=== PATIENT | female | born 1940 | race Caucasian/White ===

== ENCOUNTER → 2020-05-30 14:40 | Outpatient (BNVA) | payer MEDICARE, MEDICAID, SELFPAY | PROVIDERS: Family Provider Family Medicine; PCP Physician Assistant Medical; Visit Provider Internal Medicine | DX: M05.9 Rheumatoid arthritis with rheumatoid factor, unspecified (principal); R76.8 Other specified abnormal immunological findings in serum; Z79.52 Long term (current) use of systemic steroids; Z11.1 Encounter for screening for respiratory tuberculosis; Z11.59 Encounter for screening for other viral diseases; E11.9 Type 2 diabetes mellitus without complications; Z79.84 Long term (current) use of oral hypoglycemic drugs; J44.9 Chronic obstructive pulmonary disease, unspecified; Z87.891 Personal history of nicotine dependence | CPT/HCPCS: 99204 ==

== ENCOUNTER 2020-05-30 15:42 | Outpatient (CLI) | payer MEDICARE, MEDICAID, SELFPAY ==
--- NOTE | 2020-05-30 15:54 | XRR_ITS ---
PROCEDURE INFORMATION: Exam: XR Right Shoulder Exam date and time: 05/30/2020 3:54 PM Age: 80 years old Clinical indication: Right; Patient HX: C/O pain bilat shoulders and low back , swelling and stiffness. Presents for evaluation for inflammatory arthritis; Additional info: R76.8 - other specified abnormal immunological findings in serum TECHNIQUE: Imaging protocol: XR Right shoulder. Views: 2 or more views. COMPARISON: No relevant prior studies available. FINDINGS: Bones/joints: There are old right rib fracture deformities. There is severe degenerative changes in the lower cervical spine. No evidence of inflammatory arthritis. No chondrocalcinosis. There is no acute fracture or dislocation. The acromioclavicular joint alignment is appropriate. The subacromial joint space is well-preserved. The glenohumeral joint is unremarkable. No calcific tendinopathy. The visualized ribs are intact. Lungs: The visualized lung apex is clear. Soft tissues: Normal. XR/XR shoulder RT min 2V* [id number] IMPRESSION: No acute bony abnormality.
--- NOTE | 2020-05-30 15:54 | XRR_ITS ---
PROCEDURE INFORMATION: Exam: XR Lumbosacral Spine, 2 or 3 Views Exam date and time: 05/30/2020 3:54 PM Age: 80 years old Clinical indication: Prior surgery; Surgery date: 6+ months; Patient HX: C/O low back pain. Presents for evaluation for inflammatory arthritis; Additional info: R76.8 - other specified abnormal immunological findings in serum TECHNIQUE: Imaging protocol: XR of the lumbosacral spine, 2 or 3 views. COMPARISON: CR Lumbar Spine 1v PORT [id number] 08/25/2014 10:10 AM FINDINGS: Bones/joints: There is straightening of the normal lordosis that may indicate spasm. There is marked disc space narrowing with endplate osteophytes and sclerosis at L5-S1 which has progressed compared to the prior exam. Diffuse moderate osteoarthritic changes in the remainder of the lumbar spine are noted. No acute fracture. No spondylolysis or spondylolisthesis. Soft tissues: Unremarkable. XR/XR lumbar spine 2-3V* [id number] IMPRESSION: Progressive spondylosis. No acute bony abnormality.
--- NOTE | 2020-05-30 15:54 | XRR_ITS ---
PROCEDURE INFORMATION: Exam: XR Right Hand Exam date and time: 05/30/2020 3:54 PM Age: 80 years old Clinical indication: Hand; Right; Patient HX: C/O pain bilat shoulders and low back. Swelling and stiffness. Presents for evaluation of inflammatory arthritis; Additional info: R76.8 - other specified abnormal immunological findings in serum TECHNIQUE: Imaging protocol: XR Right hand. Views: 1 or 2 views. COMPARISON: No relevant prior studies available. FINDINGS: Bones/joints: There are diffuse osteoarthritic changes in the hand and wrist. Joint space narrowing, sclerosis and marginal osteophytes are specially severe involving the 1st interphalangeal joint, 2nd DIP joint, 1st carpometacarpal joint and scaphoid trapezium trapezoid joint. 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 There is marked joint space narrowing in the radiocarpal joint with proximal migration of the scaphoid and sclerosis and scalloping of the distal radius. There is also widening of the distance between the scaphoid and lunate measuring 4.5 mm with mild proximal migration of the capitate compatible with SLAC wrist deformity. No active inflammatory erosions are identified. No acute bony abnormality. Soft tissues: Normal. Other findings: No ankylosis. XR/XR hand RT 2V [id number] IMPRESSION: 1. Severe osteoarthritic changes. No acute bony abnormality. No evidence of active inflammatory arthritis. 2. 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
--- NOTE | 2020-05-30 15:54 | XRR_ITS ---
PROCEDURE INFORMATION: Exam: XR Left Shoulder Exam date and time: 05/30/2020 3:54 PM Age: 80 years old Clinical indication: Left; Patient HX: C/O pain bilat shoulders and low back. Swelling and stiffness. Presents for evaluation for inflammatory arthritis; Additional info: R76.8 - other specified abnormal immunological findings in serum TECHNIQUE: Imaging protocol: XR Left shoulder. Views: 2 or more views. COMPARISON: CR XR shoulder RT min 2V* [id number] 05/30/2020 4:08 PM FINDINGS: Bones/joints: No evidence of inflammatory arthritis or chondrocalcinosis. There are severe degenerative changes in the lower cervical spine. There is no acute fracture or dislocation. The acromioclavicular joint alignment is appropriate. The subacromial joint space is well-preserved. The glenohumeral joint is unremarkable. No calcific tendinopathy. The visualized ribs are intact. Lungs: There is a 10 mm ground-glass nodule left lung lateral to the hilum. Soft tissues: Normal. XR/XR shoulder LT min 2V* [id number] IMPRESSION: 1. There is a 10 mm ground-glass nodule left lung lateral to the hilum. Follow-up chest CT is recommended for further evaluation. 2. No acute bony abnormality.
--- NOTE | 2020-05-30 15:54 | XRR_ITS ---
PROCEDURE INFORMATION: Exam: XR Cervical Spine, 2 or 3 Views Exam date and time: 05/30/2020 3:54 PM Age: 80 years old Clinical indication: Neck pain; Patient HX: C/O pain neck, shoulders, elbows, . has previous diagnosis of rheumatoid arthritis. ; Additional info: R76.8 - other specified abnormal immunological findings in serum TECHNIQUE: Imaging protocol: XR of the cervical spine, 2 or 3 views. COMPARISON: No relevant prior studies available. FINDINGS: Bones/joints: There is no instability with flexion or extension. There is disc space narrowing with endplate osteophytes and osteoarthritic changes throughout the cervical spine greatest at C5-C6 and C6-C7. No acute fracture. No ankylosis or inflammatory type erosions of the facet joints are identified. Soft tissues: Calcification in the soft tissues posterior to the spinous processes of C4 and C5 is compatible with old ligamentous injury. Dental: The patient is edentulous. XR/XR cervical spine fl/ex [id number] IMPRESSION: Moderate to severe osteoarthritic changes. No instability. No acute abnormality.
--- NOTE | 2020-05-30 15:54 | XRR_ITS ---
PROCEDURE INFORMATION: Exam: XR Left Hand Exam date and time: 05/30/2020 3:54 PM Age: 80 years old Clinical indication: Hand; Left; Patient HX: C/O pain bilat shoulders and low back. Swelling and stiffness. Presents for evaluation for inflammatory arthritis; Additional info: R76.8 - other specified abnormal immunological findings in serum TECHNIQUE: Imaging protocol: XR Left hand. Views: 3 or more views. COMPARISON: No relevant prior studies available. FINDINGS: Bones/joints: There are diffuse osteoarthritic changes in the hand and wrist. There is joint space narrowing with sclerosis and marginal osteophytes greatest involving the 2nd, 3rd and 5th DIP joints and the 1st carpometacarpal joint and scaphoid trapezium trapezoid joint. No inflammatory erosions or ankylosis is identified. No acute fracture or dislocation. There is trace chondrocalcinosis in the wrist compatible with CPPD. Soft tissues: Normal. XR/XR hand LT 2V [id number] IMPRESSION: Diffuse osteoarthritic changes. No acute bony abnormality. There is chondrocalcinosis in the wrist.
[2020-05-30 17:53] LABS: Hepatitis B Core AB, Total Non-Reactive (Nonreactive); Hepatitis B Surface Antigen Non-Reactive (Nonreactive); Hepatitis C Virus Antibody Non-Reactive (Nonreactive)
[2020-06-01 13:23] LABS: Quantiferon Mitogen 8.24 IU/mL; Quantiferon Nil 0.14 IU/mL; Quantiferon Plus TB1 0.36 IU/mL; Quantiferon Plus TB2 0.65 IU/mL; Quantiferon TB Gold POSITIVE (NEGATIVE)
[2020-06-03 02:42] LABS: Glucose-6-Phosphate Dehydrogen 16.9 U/g Hgb (7.0-20.5)
== END 2020-05-30 15:43 | disposition home or self-care (01) ==
LOC: LAB 15:49
PROVIDERS: PCP Physician Assistant Medical; Visit Provider Internal Medicine
DX: Z51.81 Encounter for therapeutic drug level monitoring (principal); R76.8 Other specified abnormal immunological findings in serum; D86.9 Sarcoidosis, unspecified; M32.9 Systemic lupus erythematosus, unspecified; R91.1 Solitary pulmonary nodule; M47.816 Spondylosis without myelopathy or radiculopathy, lumbar region; M11.231 Other chondrocalcinosis, right wrist
CPT/HCPCS: 36415; 72040; 72100; 73030; 73120; 82955; 86480; 86704; 86803; 87340

== ENCOUNTER 2020-08-25 13:04 | Outpatient (CLI) | payer MEDICARE, MEDICAID, SELFPAY ==
--- NOTE | 2020-08-25 13:16 | CT_ITS ---
WS: [id number] LDCT LUNG CANCER SCREENING TECHNIQUE: Noncontrast CT of the chest with coronal and sagittal reformatted images. CLINICAL INFORMATION: NICOTINE DEPENDENCE COMPARISON: CT chest 3 30,015 DLP: 60.13 mGy.cm DIvol: 1.[address] scans at [facility] use at least one of these dose optimization techniques: automat ed exposure control; mA and/or kV adjustment per patient size (includes targeted exams where dose is matched to clinical indication); or iterative reconstruction. FINDINGS: Left lower lobe pulmonary opacity with adjacent vessel. This measures approximately 11 x 9 mm and is similar in appearance to 2015. This measures a few millimeters larger today with a more solid appeara nce but otherwise not significantly changed. Spiculated fibrotic appearing opacity right lower lobe h as decreased in size since 2015. This measures approximately 10 mm. Fibrosis right lower lobe mediall y. Calcified granuloma right upper lobe. Vascular calcification. Coronary calcification. Tiny pericardial effusion or pericardial thickening. Numerous anterior mediastinal and peribronchial lymph nodes nonspecific but likely reactive. These ar e unchanged since 2015. No axillary lymphadenopathy. Densely calcified bilateral breast nodules measuring 9 mm on the right and 10 mm on the left. Recomme nd diagnostic mammography and ultrasound for further evaluation. Cholecystectomy clips. CT/CT lung screening [id number] IMPRESSION: LUNG-RADS: 3-Probably Benign FOLLOW UP: 6 Month LDCT IN ADDITION, DENSELY CALCIFIED BREAST LESIONS BILATERALLY MAY REPRESENT INVOLUT ING FIBROADENOMAS BUT INDETERMINANT. RECOMMEND FURTHER EVALUATION WITH BILATERA L DIAGNOSTIC MAMMOGRAPHY AND ULTRASOUND.
== END 2020-08-25 13:05 | disposition home or self-care (01) ==
LOC: CT 13:10
PROVIDERS: PCP Physician Assistant Medical; Visit Provider Internal Medicine Pulmonary Disease
DX: Z12.2 Encounter for screening for malignant neoplasm of respiratory organs (principal); F17.210 Nicotine dependence, cigarettes, uncomplicated
CPT/HCPCS: 71271

== ENCOUNTER → 2020-11-15 15:00 | Outpatient (BNVA) | payer MEDICARE, MEDICAID, SELFPAY | PROVIDERS: PCP Physician Assistant Medical; Visit Provider Internal Medicine | DX: R76.8 Other specified abnormal immunological findings in serum (principal); M25.50 Pain in unspecified joint; R76.12 Nonspecific reaction to cell mediated immunity measurement of gamma interferon antigen response without active tuberculosis; M54.9 Dorsalgia, unspecified; R91.1 Solitary pulmonary nodule; J44.9 Chronic obstructive pulmonary disease, unspecified; F17.210 Nicotine dependence, cigarettes, uncomplicated | CPT/HCPCS: 99213; 99214 ==

== ENCOUNTER → 2021-01-30 09:06 | Outpatient (BNVA) | payer MEDICARE, MEDICAID, SELFPAY | PROVIDERS: PCP Physician Assistant Medical; Visit Provider Neurological Surgery | DX: R76.8 Other specified abnormal immunological findings in serum (principal); M25.50 Pain in unspecified joint; Z79.899 Other long term (current) drug therapy | CPT/HCPCS: 80053; 85025; 85651; 86140 ==

== ENCOUNTER → 2021-03-06 13:48 | Outpatient (BNVA) | payer MEDICARE, MEDICAID, SELFPAY | PROVIDERS: PCP Physician Assistant Medical; Visit Provider Internal Medicine | DX: J44.9 Chronic obstructive pulmonary disease, unspecified (principal); R91.1 Solitary pulmonary nodule; R76.12 Nonspecific reaction to cell mediated immunity measurement of gamma interferon antigen response without active tuberculosis; M25.50 Pain in unspecified joint; R76.8 Other specified abnormal immunological findings in serum; R74.01 Elevation of levels of liver transaminase levels; F17.210 Nicotine dependence, cigarettes, uncomplicated | CPT/HCPCS: 99214 ==

== ENCOUNTER 2021-04-26 09:09 | Outpatient (CLI) | payer MEDICARE, MEDICAID, SELFPAY ==
--- NOTE | 2021-04-26 09:30 | US_ITS ---
WS: [id number] RIGHT UPPER QUADRANT ULTRASOUND HISTORY: R74.01 - Elevation of levels of liver transaminase levels COMPARISON: None available. Liver: 12.6 cm in length. Normal size liver. No bile duct dilatation or mass. Gallbladder: Prior cholecystectomy. CBD: 0.3 cm Pancreas: Normal size and echogenicity. Right kidney: 8.9 cm in length. Mild atrophy with no hydronephrosis. Cortical cyst inferior kidney me asuring 1.0 x 1.1 x 1.3 cm. No hydronephrosis. Aorta and IVC: Unremarkable abdominal aorta and IVC. No ascites. US/US liver [id number] IMPRESSION: 1. Prior cholecystectomy. 2. No biliary duct dilatation. 3. Simple cyst RIGHT kidney.
== END 2021-04-26 09:10 | disposition home or self-care (01) ==
PROVIDERS: PCP Physician Assistant Medical; Visit Provider Internal Medicine
DX: R74.01 Elevation of levels of liver transaminase levels (principal)
CPT/HCPCS: 76705

== ENCOUNTER → 2021-05-07 13:00 | Outpatient (BNVA) | payer MEDICARE, MEDICAID, SELFPAY | PROVIDERS: PCP Physician Assistant Medical; Visit Provider Internal Medicine | DX: J44.9 Chronic obstructive pulmonary disease, unspecified (principal); R91.1 Solitary pulmonary nodule; M25.50 Pain in unspecified joint; R76.12 Nonspecific reaction to cell mediated immunity measurement of gamma interferon antigen response without active tuberculosis; R74.01 Elevation of levels of liver transaminase levels; M54.9 Dorsalgia, unspecified; R76.8 Other specified abnormal immunological findings in serum; F17.210 Nicotine dependence, cigarettes, uncomplicated | CPT/HCPCS: 99213; 99214 ==

== ENCOUNTER → 2021-05-31 13:09 | Outpatient (BNVA) | payer MEDICARE, MEDICAID, SELFPAY | PROVIDERS: PCP Physician Assistant Medical; Referring Provider Internal Medicine; Visit Provider Anesthesiology Pain Medicine | DX: G89.29 Other chronic pain (principal); M51.9 Unspecified thoracic, thoracolumbar and lumbosacral intervertebral disc disorder; M47.812 Spondylosis without myelopathy or radiculopathy, cervical region; M79.604 Pain in right leg; M79.605 Pain in left leg; Z98.890 Other specified postprocedural states; F17.200 Nicotine dependence, unspecified, uncomplicated; Z79.891 Long term (current) use of opiate analgesic; M53.2X2 Spinal instabilities, cervical region | CPT/HCPCS: 72050; 99205 ==

== ENCOUNTER 2021-05-31 14:12 | Outpatient (CLI) | payer MEDICARE, MEDICAID, SELFPAY ==
--- NOTE | 2021-05-31 14:26 | XR_ITS ---
WS: [id number] CERVICAL SPINE 5 VIEWS HISTORY: M47.812 - Spondylosis without myelopathy or radiculopathy... COMPARISON: 05/30/2020. AP and lateral views of the cervical spine. Lateral in neutral, flexion and extension. Straightening of the normal cervical lordosis. Severe disc space narrowing and osteophytosis at C5-6 and C6-7. Very mild flexion extension instability at C4. Approximately 2 mm movement during flexion a nd extension of the C4 vertebral body. No additional movement. No fractures. Very mild narrowing of the facet joints. Facet joint arthritis is most significant at C5-6 and C6-7. No soft tissue abnormality. Lateral masses of C1 and C2 are aligned. The odontoid is intact. XR/XR cervical spine 4-5V [id number] IMPRESSION: 1. Severe disc space narrowing and spondylosis at C5-6 and C6-7. 2. Very minimal flexion extension instability at C4.
== END 2021-05-31 14:13 | disposition home or self-care (01) ==
PROVIDERS: PCP Physician Assistant Medical; Visit Provider Anesthesiology Pain Medicine
DX: M47.812 Spondylosis without myelopathy or radiculopathy, cervical region (principal); M53.2X2 Spinal instabilities, cervical region
CPT/HCPCS: 72050

== ENCOUNTER → 2021-06-06 14:09 | Outpatient (BNVA) | payer MEDICARE, MEDICAID, SELFPAY | PROVIDERS: PCP Physician Assistant Medical; Visit Provider Anesthesiology Pain Medicine | DX: M47.816 Spondylosis without myelopathy or radiculopathy, lumbar region (principal); Z79.891 Long term (current) use of opiate analgesic | CPT/HCPCS: 64493; 64494; 64495; J3490 ==

== ENCOUNTER → 2021-07-18 08:38 | Outpatient (BNVA) | payer MEDICARE, MEDICAID, SELFPAY | PROVIDERS: PCP Physician Assistant Medical; Visit Provider Anesthesiology Pain Medicine | DX: G89.29 Other chronic pain (principal); M54.2 Cervicalgia; M51.9 Unspecified thoracic, thoracolumbar and lumbosacral intervertebral disc disorder; M79.604 Pain in right leg; M79.605 Pain in left leg; Z98.890 Other specified postprocedural states; Z79.891 Long term (current) use of opiate analgesic | CPT/HCPCS: 99214 ==

== ENCOUNTER → 2021-07-25 14:23 | Outpatient (BNVA) | payer MEDICARE, MEDICAID, SELFPAY | PROVIDERS: PCP Physician Assistant Medical; Visit Provider Anesthesiology Pain Medicine | DX: M47.816 Spondylosis without myelopathy or radiculopathy, lumbar region (principal) | CPT/HCPCS: 64493; 64494; 64495; J3490 ==

== ENCOUNTER → 2021-08-16 13:54 | Outpatient (BNVA) | payer MEDICARE, MEDICAID, SELFPAY | PROVIDERS: PCP Physician Assistant Medical; Visit Provider Anesthesiology Pain Medicine | DX: G89.29 Other chronic pain (principal); M54.2 Cervicalgia; M51.9 Unspecified thoracic, thoracolumbar and lumbosacral intervertebral disc disorder; Z98.890 Other specified postprocedural states; M79.604 Pain in right leg; M79.605 Pain in left leg; F17.210 Nicotine dependence, cigarettes, uncomplicated; Z79.891 Long term (current) use of opiate analgesic | CPT/HCPCS: 99214 ==

== ENCOUNTER → 2021-09-20 12:31 | Outpatient (BNVA) | payer MEDICARE, MEDICAID, SELFPAY | PROVIDERS: PCP Physician Assistant Medical; Visit Provider Internal Medicine | DX: J44.9 Chronic obstructive pulmonary disease, unspecified (principal); R91.1 Solitary pulmonary nodule; R76.12 Nonspecific reaction to cell mediated immunity measurement of gamma interferon antigen response without active tuberculosis; R76.8 Other specified abnormal immunological findings in serum; M54.9 Dorsalgia, unspecified; F17.210 Nicotine dependence, cigarettes, uncomplicated | CPT/HCPCS: 99214 ==

== ENCOUNTER → 2021-10-01 09:16 | Outpatient (BNVA) | payer MEDICARE, MEDICAID, SELFPAY | PROVIDERS: PCP Physician Assistant Medical; Visit Provider Internal Medicine | DX: G89.29 Other chronic pain (principal); M51.9 Unspecified thoracic, thoracolumbar and lumbosacral intervertebral disc disorder; M54.2 Cervicalgia; R74.01 Elevation of levels of liver transaminase levels; R76.8 Other specified abnormal immunological findings in serum | CPT/HCPCS: 80053; 85025; 85651; 86140 ==

== ENCOUNTER 2022-01-08 14:32 | Outpatient (CLI) | payer MEDICARE, MEDICAID, SELFPAY ==
--- NOTE | 2022-01-08 14:42 | XR_ITS ---
WS: [id number] Lumbar spine, 3 views, 01/08/2022 Clinical Data: M51.9 - Unspecified thoracic, thoracolumbar and lumbosacr... Comparison: Lumbar spine, 05/30/2020. Findings: No compression fractures or subluxation is seen. Degenerative disc narrowing at L5-S1 is present. The there is anterior osteoarthritic spurring from L1 through L5. Transverse processes and SI joints are normal. There is calcification wall of the abdominal aorta but no aneurysm. There is an arthroplasty. There a re clips in the upper abdomen probably from a cholecystectomy. XR/XR lumbar spine 2-3V* [id number] Impression: 1. Degenerative disc narrowing L5-S1. 2. Osteoarthritis of the lumbar vertebral bodies.
--- NOTE | 2022-01-08 14:42 | XR_ITS ---
WS: [email or web address] Thoracic spine, 3 views, 01/08/2022 Clinical Data: M51.9 - Unspecified thoracic, thoracolumbar and lumbosacral... Comparison: None. Findings: No compression fractures are seen. The disc heights are normal. There is anterior osteoarthritic change of all the thoracic vertebral bodies. The paravertebral regio n is normal. There are clips in the right upper quadrant from a cholecystectomy. XR/XR thoracic spine 3V* [id number] Impression: Mild osteoarthritis of the thoracic vertebral bodies.
== END 2022-01-08 14:33 | disposition home or self-care (01) ==
LOC: RAD 14:34
PROVIDERS: PCP Physician Assistant Medical; Visit Provider Internal Medicine
DX: M25.50 Pain in unspecified joint (principal); R76.8 Other specified abnormal immunological findings in serum; R76.12 Nonspecific reaction to cell mediated immunity measurement of gamma interferon antigen response without active tuberculosis; M51.9 Unspecified thoracic, thoracolumbar and lumbosacral intervertebral disc disorder; R74.01 Elevation of levels of liver transaminase levels
CPT/HCPCS: 72072; 72100; 99214

== ENCOUNTER → 2022-05-06 14:14 | Outpatient (BNVA) | payer MEDICARE, MEDICAID, SELFPAY | PROVIDERS: PCP Physician Assistant Medical; Visit Provider Internal Medicine | DX: M25.50 Pain in unspecified joint (principal); J44.9 Chronic obstructive pulmonary disease, unspecified; R76.8 Other specified abnormal immunological findings in serum; R76.12 Nonspecific reaction to cell mediated immunity measurement of gamma interferon antigen response without active tuberculosis | CPT/HCPCS: 99213; 99214 ==

== ENCOUNTER → 2022-09-19 16:38 | Outpatient (BNVA) | payer MEDICARE, MEDICAID, SELFPAY | PROVIDERS: PCP Physician Assistant Medical; Visit Provider Family Medicine | DX: I10 Essential (primary) hypertension (principal); E03.9 Hypothyroidism, unspecified; E11.9 Type 2 diabetes mellitus without complications; R74.01 Elevation of levels of liver transaminase levels | CPT/HCPCS: 80053; 80061; 83036; 84443; 85025 ==

== ENCOUNTER 2022-10-08 22:38 | Inpatient (IN) | payer MEDICARE, MEDICAID, SELFPAY ==
[2022-10-08 22:43] VITALS: BMI 20.5
[2022-10-08 22:47] VITALS: BP 148/57; PULSE 63; RESP 18; TEMP 36.5; O2SAT 92
--- NOTE | 2022-10-08 22:48 | ED_ITS ---
HPI - Fall General: Chief Complaint: Fall Stated Complaint: right hip pain Time Seen by Provider: 10/08/22 22:48 History of Present Illness: Ms. Muro is an 82-year-old lady with history of hypertension, hyperlipidemia, COPD, diabetes presenting to the emergency department for fall with hip pain. She reports propping more lightheaded over the past day and was walking to let her cat and when she fell primarily backwards and on the right side and immediately had right hip pain. Unable to ambulate. Moderate to severe in intensity initially however quite improved with EMS administered analgesia. No other specific changes in health, exacerbating, or alleviating factors identi fied. Onset (ago): minute(s) Fall from: standing Loss of consciousness: None Prolonged down time: no Symptoms prior to fall: lightheadedness Location of injury: pelvis Location of injury - extremities: Right: thigh Severity: moderate Quality: stabbing and aching Review of Systems General: Reports: 10 or more systems reviewed and unremarkable except in HPI and below PFSH ED PFSH: Medical History Cervical disc disease Lumbar disc disease Surgical History History of appendectomy History of cholecystectomy History of hemilaminectomy History of hysterectomy Family History Mother Cancer Other CAD (coronary artery disease) Diabetes Social History Smoking and tobacco status: never smoked Quit status (tobacco): considering quitting Second hand smoke exposure: Yes Smoking risk assessment/counseling performed?: Yes Alcohol intake: never Substance/Drug Use: never Caregiver/support person: Yes Lives independently: Yes Household members: none Housing: Apartment Marital status: / Current occupational status: retired Pets and animals: No Current gender identity: Female Physical Exam Const: COMMON NORMALS: alert GENERAL APPEARANCE: cooperative and well developed HENMT: COMMON NORMALS: normocephalic and atraumatic HEAD & SCALP: normocephalic and atraumatic Eye: COMMON NORMALS: conjunctivae normal CONJUNCTIVA: Yes conjunctivae normal SCLERA: sclerae normal Neck/C-Spine: COMMON NORMALS: supple GENERAL: Yes trachea midline Resp: COMMON NORMALS: clear to auscultation bilaterally EFFORT & INSPECTION: Yes able to speak in complete sentences AUSCULTATION: clear to auscultation bilaterally Cardio: COMMON NORMALS: regular rate and regular rhythm RATE: regular rate RHYTHM: regular rhythm GI: COMMON NORMALS: Soft to palpation PALPATION: Yes Soft to palpation and No Tenderness to palpation present (GI) Extremity: NARRATIVE EXTREMITY EXAM: Right hip tenderness palpation. Distal CMS intact. GENERAL: Yes normal exam except as noted and No edema Neuro: COMMON NORMALS: moves all extremities SENSORIUM/ORIENTATION: Yes alert and No Orientation impaired Psych: COMMON NORMALS: mental status grossly normal and Normal thought process present THOUGHT PROCESS: Normal thought process present Course Vital Signs: Vital signs: Vital Signs Temperature 97.8 F 10/14/22 12:09 Pulse Rate 78 10/14/22 12:09 Respiratory Rate 18 10/14/22 12:09 Blood Pressure 154/78 10/14/22 12:09 Pulse Oximetry 98 10/14/22 12:09 Oxygen Delivery Me thod Room Air 10/14/22 08:00 MDM - Fall Medical Decision Making 82-year-old lady presenting due to fall. She does endorse some lightheadedness though believes that this was due to trip overall. Additional exam performed. EKG demonstrates sinus rhythm with nonspecific ST segment abnormalities, normal axis and intervals, no STEMI. Labs with no significant hematologic abnormality or metabolic end of hyperkalemia and elevated creatinine. Initial troponin elevated with negative range 2-hour delta troponin. No UTI. CT imaging negative for acute traumatic injury with the exception of right subcapital fracture. Numerous incidental findings were discussed with patient. Patient treated with Tdap, aspirin, IV fluids, analgesia during ED course. Orthopedic service consulted. The results of ED evaluation were discussed with the patient including plan for admission due to requirement for level of care not available if discharged to prevent significant worsening/deterioration. Patient agreeable with plan. Discussed with hospitalist service who was agreeable to admit patient. Medical Records I reviewed the patient's medical records. Lab Data I reviewed the patient's lab results. 10/13/22 02:58 10/13/22 02:58 Radiology Impressions Chest/Abdomen/Pelvis CT 10/08/22 22:53 IMPRESSION: 1. Negative for traumatic injury to the chest. 2. Ascending thoracic aorta is dilated 3.6 cm, similar to prior exam. 3. Coronary artery atherosclerotic calcifications. 4. Cardiomegaly. 5. Mediastinal lymph nodes measuring up to 7.7 mm. 6. Right lower lobe 13.7 mm pulmonary nodule. Left lower lobe 11.7 mm nodule, new compared to prior exam. Lingular nodule measuring 15 mm abutting the pleural surface. Highly suspicious nodule(s). Consider non-emergent IMPRESSION: 1. Right subcapital impacted fracture with at least 1/2 shaft displacement. 2. Biliary dilation. 3. Cholecystectomy. 4. Bilateral renal cysts. 5. Left kidney chronic atrophy. 6. Constipation. 7. Calles catheter in the urinary bladder with air presumed iatrogenic. 8. Diverticulosis without diverticulitis. 9. Left hip arthroplasty changes. COMMENTS: Consistent with the [employer]'s Incidental Findings Committee white paper (J Am Ivan Radiol 2018): Any incidental renal lesion less than 1 cm or classified as too small to characterize, or any incidental cystic renal lesion characterized as simple-appearing, is likely benign. No follow-up imaging is recommended for these lesions per consensus recommendations based on imaging criteria. Face CT 10/08/22 22:53 IMPRESSION: Negative for fracture or dislocation. Femur X-Ray 10/08/22 22:53 IMPRESSION: 1. Right subcapital impacted displaced hip fracture. 2. Scattered vascular calcifications Head CT 10/08/22 22:53 IMPRESSION: Negative for intracranial hemorrhage or mass effect. Hip/Pelvis X-Ray 10/08/22 22:53 IMPRESSION: Right subcapital impacted displaced hip fracture. Tibia/Fibula X-Ray 10/08/22 22:53 IMPRESSION: No acute findings. Pelvis X-Ray 10/10/22 08:42 IMPRESSION: Postsurgical changes of right hip arthroplasty Laboratory Results WBC 7.1 10^3/uL (4.0-10.0) 10/08/22 22:55 RBC 3.72 10^6/uL (4.1-5.3) L 10/08/22 22:55 Hgb 12.0 g/dL (11.5-15.3) 10/08/22 22:55 Hct 36.6 % (37.0-47.0) L 10/08/22 22:55 MCV 98.4 fl (81-99) 10/08/22 22:55 MCH 32.3 pg (28.0-34.0) 10/08/22 22:55 MCHC 32.8 g/dL (30.0-36.0) 10/08/22 22:55 RDW 13.6 % (12.1-15.1) 10/08/22 22:55 Plt Count 214 10^3/cmm (130-400) 10/08/22 22:55 MPV 9.9 fL (7.4-10.4) 10/08/22 22:55 Neut % (Auto) 61.2 % 10/08/22 22:55 Lymph % (Auto) 27.1 % 10/08/22 22:55 [place] % (Auto) 10.3 % 10/08/22 22:55 Eos % (Auto) 0.0 % 10/08/22 22: Baso % (Auto) 0.8 % 10/08/22 22: Neut # (Auto) 4.32 10^3/uL (1.8-7.7) 10/08/22 22:55 Lymph # (Auto) 1.9 10^3/uL (0.8-4.8) 10/08/22 22:55 [place] # (Auto) 0.7 10^3/uL (0.2-0.9) 10/08/22 22:55 Eos # (Auto) 0.0 10^3/uL (0.0-0.8) 10/08/22 22:55 Baso # (Auto) 0.1 10^3/uL (0.0-0.1) 10/08/22 22: Nucleated RBC % (auto) 0 % 10/08/22 22: Nucleated RBCs # 0.0 /100WBC 10/08/22 22:55 PT 13.30 SECONDS (12.1-14.9) 10/08/22 22:55 INR 0.98 (0.8-1.2) 10/08/22 22:55 APTT 27.8 SECONDS (23.9-36.7) 10/08/22 22:55 Sodium 135 mmol/L (136-145) L 10/08/22 22:55 Potassium 5.6 mmol/L (3.5-5.1) H 10/08/22 22:55 Chloride 99 mmol/L (98-107) 10/08/22 22:55 Carbon Dioxide 26 mmol/L (22-29) 10/08/22 22:55 Anion Gap 15.6 (5-19) 10/08/22 22:55 BUN 27 mg/dL (8-23) H 10/08/22 22:55 Creatinine 1.9 mg/dL (0.5-0.9) H 10/08/22 22:55 GFR Calculation Not Reportable 10/08/22 22:55 Glucose 82 mg/dL (65-115) 10/08/22 22:55 POC Glucose 222 mg/dL (70-110) H 10/08/22 23:18 Estimat Average Glucose 171 10/08/22 22:55 Hemoglobin A1c 7.6 % (4.0-6.0) H 10/08/22 22:55 Calculated Osmolality 284 mOsm/kg (285-295) L 10/08/22 22:55 Calcium 8.5 mg/dL (8.5-10.5) 10/08/22 22:55 Total Bilirubin 0.3 mg/dL (0.15-1.2) 10/08/22 22:55 AST 69 U/L (0-32) H 10/08/22 22:55 ALT 54 U/L (0-33) H 10/08/22 22:55 Alkaline Phosphatase 63 U/L (35-105) 10/08/22 22:55 Creatine Kinase 345 U/L (26-192) H* 10/09/22 00:50 Troponin T Baseline 180 ng/L (0-10) H* 10/08/22 22:55 Troponin T 120 Minute 150.8 ng/L (0-10) H 10/09/22 00:50 Delta Troponin T -29.2 ABS# (0-10) L 10/09/22 00:50 Total Protein 5.5 g/dL (6.6-8.7) L 10/08/22 22:55 Albumin 3.4 g/dL (3.5-5.2) L 10/08/22 22:55 Globulin 2.1 g/dL (1.3-4.6) 10/08/22 22:55 Procalcitonin 0.07 ng/mL (0-0.5) 10/09/22 00:50 TSH 1.08 uIU/mL (0.27-4.20) 10/09/22 00:50 TSH Cancelled 10/09/22 00:50 Urine Color Light yellow (Yellow) 10/08/22 23:41 Urine Appearance Clear (CLEAR) 10/08/22 23:41 Urine pH 5 (5-7) 10/08/22 23:41 Ur Specific Boaz 1.010 (1.005-1.030) 10/08/22 23:41 Urine Protein Neg (Negative) 10/08/22 23:41 Urine Glucose (UA) Norm (Normal) 10/08/22 23:41 Urine Ketones Negative (Negative) 10/08/22 23:41 Urine Blood Neg (Negative) 10/08/22 23:41 Urine Nitrate Negative (Negative) 10/08/22 23:41 Urine Bilirubin Neg (Negative) 10/08/22 23:41 Urine Urobilinogen Neg mg/dL (Negative) 10/08/22 23:41 Ur Leukocyte Esterase Negative (Negative) 10/08/22 23:41 Discharge Plan Discharge Patient Disposition: Admitted As Inpatient Admit Provider: Jessica Abarca Clinical Impression: BRENDA (acute kidney injury), Elevated troponin, Multiple lung nodules Closed subcapital fracture of neck of right femur Qualifiers: Encounter type: initial encounter Qualified Code(s): S72.011A - Unspecified intracapsular fracture of right femur, initial encounter for closed fracture Condition: Stable Discharge Diet: As Directed and Diabetic Discharge Activity: Increase activity as tolerated, Limit activity as instru cted, Use walker/crutches as instructed and As per PT/OT instructions Coding Level of Care Code ED [employer] for Marion Cavanaugh
--- NOTE | 2022-10-08 22:53 | CTR_ITS ---
PROCEDURE INFORMATION: Exam: CT Maxillofacial Without Contrast Exam date and time: 10/08/2022 11:48 PM Age: 82 years old Clinical indication: Injury or trauma; Fall; Blunt trauma (contusions or hematomas); Nose; Patient HX: PT tripped on a rug and fell backwards onto floor at home. Contusion to nasion. ; Additional info: Fall, L nasal bridge echymosis TECHNIQUE: Imaging protocol: Computed tomography of the face without contrast. Radiation optimization: All CT scans at this facility use at least one of these dose optimization techniques: automated exposure control; mA and/or kV adjustment per patient size (includes targeted exams where dose is matched to clinical indication); or iterative reconstruction. REPORTING DATA: Count of CT and Cardiac NM exams in prior 12 months: This patient has received 2 known CTs and 0 known cardiac nuclear medicine studies in the 12 months prior to the current study. COMPARISON: CT head wo con* [id number] 10/08/2022 11:45 PM RADIATION DOSE METRICS: Total DLP (mGy-cm): 514.98 FINDINGS: Orbital cavities: Orbits are normal. Globes are unremarkable. Bones/joints: No acute fracture. Paranasal sinuses: Normal. No air-fluid levels. Soft tissues: Unremarkable. Nasal cavity: Chronic rightward deviation of the bony nasal septum by 5.[address]/CT facial bones wo con* [id number] IMPRESSION: Negative for fracture or dislocation.
--- NOTE | 2022-10-08 22:53 | XRR_ITS ---
PROCEDURE INFORMATION: Exam: XR Right Hip Exam date and time: 10/08/2022 11:04 PM Age: 82 years old Clinical indication: Injury or trauma; Fall; Fracture of pelvis & hip; Right; Traumatic fracture; Articular head of femur; Closed fracture; Additional info: Fall, R hip pain TECHNIQUE: Imaging protocol: Radiologic exam of the right hip. Views: 1 view hip with pelvis when performed. COMPARISON: CR XR lumbar spine 2-3V* [id number] 05/30/2020 4:21 PM FINDINGS: Bones/joints: Right subcapital impacted displaced hip fracture. Soft tissues: Unremarkable. XR/XR hip RT 2-3V wo/w pel* [id number] IMPRESSION: Right subcapital impacted displaced hip fracture.
--- NOTE | 2022-10-08 22:53 | XRR_ITS ---
PROCEDURE INFORMATION: Exam: XR Right Tibia and Fibula Exam date and time: 10/08/2022 11:14 PM Age: 82 years old Clinical indication: Injury or trauma; Fall; Sprain or strain; Lower leg; Right; Additional info: Fall, mid to distal pain TECHNIQUE: Imaging protocol: Radiologic exam of the right tibia and fibula. Views: 2 views. COMPARISON: No relevant prior studies available. FINDINGS: Bones/joints: Normal. Soft tissues: Normal. XR/XR tibia fibula RT 2V [id number] IMPRESSION: No acute findings.
--- NOTE | 2022-10-08 22:53 | CTR_ITS ---
PROCEDURE INFORMATION: Exam: CT Head Without Contrast Exam date and time: 10/08/2022 11:45 PM Age: 82 years old Clinical indication: Injury or trauma; Fall; Blunt trauma (contusions or hematomas); Patient HX: PT tripped on a rug and fell backwards onto floor at home. Negative for anticoagulants. TECHNIQUE: Imaging protocol: Computed tomography of the head without contrast. Radiation optimization: All CT scans at this facility use at least one of these dose optimization techniques: automated exposure control; mA and/or kV adjustment per patient size (includes targeted exams where dose is matched to clinical indication); or iterative reconstruction. REPORTING DATA: Count of CT and Cardiac NM exams in prior 12 months: This patient has received 2 known CTs and 0 known cardiac nuclear medicine studies in the 12 months prior to the current study. COMPARISON: CR XR cervical spine 4-5V [id number] 05/31/2021 2:38 PM RADIATION DOSE METRICS: Total DLP (mGy-cm): 866 FINDINGS: Brain: Moderate diffuse white matter disease likely reflecting chronic microvascular ischemic changes. Punctate bilateral basal ganglia calcifications appear chronic and benign. Cerebral ventricles: No ventriculomegaly. Paranasal sinuses: Visualized sinuses are unremarkable. No fluid levels. Mastoid air cells: Visualized mastoid air cells are well aerated. Bones/joints: Unremarkable. No acute fracture. Soft tissues: Unremarkable. CT/CT head wo con* [id number] IMPRESSION: Negative for intracranial hemorrhage or mass effect.
--- NOTE | 2022-10-08 22:53 | CTR_ITS ---
PROCEDURE INFORMATION: Exam: CT Chest With Contrast; Diagnostic Exam date and time: 10/08/2022 11:52 PM Age: 82 years old Clinical indication: Injury or trauma; Fall; Generalized; Blunt trauma (contusions or hematomas); Prior surgery; Surgery type: Gb. Appy. Hysterectomy. Laminectomy. Left jerry. Patient HX: PT tripped on a rug at home and fell backwards onto floor. TECHNIQUE: Imaging protocol: Diagnostic computed tomography of the chest with contrast. Radiation optimization: All CT scans at this facility use at least one of these dose optimization techniques: automated exposure control; mA and/or kV adjustment per patient size (includes targeted exams where dose is matched to clinical indication); or iterative reconstruction. Contrast material: OMNI 350; Contrast volume: 75 ml; Contrast route: INTRAVENOUS (IV); REPORTING DATA: Count of CT and Cardiac NM exams in prior 12 months: This patient has received 2 known CTs and 0 known cardiac nuclear medicine studies in the 12 months prior to the current study. COMPARISON: CT lung screening [id number] 08/25/2020 1:43 PM RADIATION DOSE METRICS: Total DLP (mGy-cm): 430.95 FINDINGS: Lungs: Right lower lobe 13.7 mm pulmonary nodule. Left lower lobe 11.7 mm nodule, new compared to prior exam. Lingular nodule measuring 15 mm abutting the pleural surface. Emphysematous changes. Pleural spaces: Unremarkable. No pneumothorax. No pleural effusion. Heart: Cardiomegaly. Coronary arteries: Coronary artery atherosclerotic calcifications. Lymph nodes: Mediastinal lymph nodes measuring up to 7.7 mm. Vasculature: Ascending thoracic aorta is dilated 3.6 cm, similar to prior exam. Bones/joints: Unremarkable. No acute fracture. Soft tissues: Unremarkable. PET/CT, or tissue sampling.(Reference: Abe) 7. Emphysematous changes. REFERENCES: Abe Newton, et al. Guidelines for Management of Incidental Pulmonary Nodules Detected on CT Images: From the Fleischner Society 2017. Radiology. 2017;284(1):228-243. PROCEDURE INFORMATION: Exam: CT Abdomen And Pelvis With Contrast Exam date and time: 10/08/2022 11:52 PM Age: 82 years old Clinical indication: Injury or trauma; Fall; Generalized; Blunt trauma (contusions or hematomas); Prior surgery; Surgery type: Gb. Appy. Hysterectomy. Laminectomy. Left jerry. Patient HX: PT tripped on a rug at home and fell backwards onto floor. TECHNIQUE: Imaging protocol: Computed tomography of the abdomen and pelvis with contrast. Radiation optimization: All CT scans at this facility use at least one of these dose optimization techniques: automated exposure control; mA and/or kV adjustment per patient size (includes targeted exams where dose is matched to clinical indication); or iterative reconstruction. Contrast material: OMNI 350; Contrast volume: 75 ml; Contrast route: INTRAVENOUS (IV); REPORTING DATA: Count of CT and Cardiac NM exams in prior 12 months: This patient has received 2 known CTs and 0 known cardiac nuclear medicine studies in the 12 months prior to the current study. COMPARISON: CR (PELVIS, ) 10/08/2022 11:04 PM RADIATION DOSE METRICS: Total DLP (mGy-cm): 430.95 FINDINGS: Liver: Normal. No mass. Gallbladder and bile ducts: Biliary dilation. Cholecystectomy. Pancreas: Normal. No ductal dilation. Spleen: Normal. No splenomegaly. Adrenal glands: Normal. No mass. Kidneys and ureters: Bilateral renal cysts. Left kidney chronic atrophy. Stomach and bowel: Constipation. Diverticulosis without diverticulitis. Appendix: No evidence of appendicitis. Intraperitoneal space: Unremarkable. No free air. No significant fluid collection. Vasculature: Unremarkable. No abdominal aortic aneurysm. Lymph nodes: Unremarkable. No enlarged lymph nodes. Urinary bladder: Calles catheter in the urinary bladder with air presumed iatrogenic. Reproductive: Unremarkable as visualized. Bones/joints: Left hip arthroplasty changes. Right subcapital impacted fracture with at least 1/2 shaft displacement. Soft tissues: Unremarkable. CT/CT chest abdpel w/*[id number] IMPRESSION: 1. Negative for traumatic injury to the chest. 2. Ascending thoracic aorta is dilated 3.6 cm, similar to prior exam. 3. Coronary artery atherosclerotic calcifications. 4. Cardiomegaly. 5. Mediastinal lymph nodes measuring up to 7.7 mm. 6. Right lower lobe 13.7 mm pulmonary nodule. Left lower lobe 11.7 mm nodule, new compared to prior exam. Lingular nodule measuring 15 mm abutting the pleural surface. Highly suspicious nodule(s). Consider non-emergent IMPRESSION: 1. Right subcapital impacted fracture with at least 1/2 shaft displacement. 2. Biliary dilation. 3. Cholecystectomy. 4. Bilateral renal cysts. 5. Left kidney chronic atrophy. 6. Constipation. 7. Calles catheter in the urinary bladder with air presumed iatrogenic. 8. Diverticulosis without diverticulitis. 9. Left hip arthroplasty changes. COMMENTS: Consistent with the [employer]'s Incidental Findings Committee white paper (J Am Ivan Radiol 2018): Any incidental renal lesion less than 1 cm or classified as too small to characterize, or any incidental cystic renal lesion characterized as simple-appearing, is likely benign. No follow-up imaging is recommended for these lesions per consensus recommendations based on imaging criteria.
--- NOTE | 2022-10-08 22:53 | XRR_ITS ---
PROCEDURE INFORMATION: Exam: XR Right Femur Exam date and time: 10/08/2022 11:09 PM Age: 82 years old Clinical indication: Injury or trauma; Fall; Fracture, traumatic; Closed fracture; Hip; Right TECHNIQUE: Imaging protocol: Radiologic exam of the right femur. Views: 2 views. COMPARISON: CR (PELVIS, ) 10/08/2022 11:04 PM FINDINGS: Bones/joints: Right subcapital impacted displaced hip fracture. Soft tissues: Unremarkable. Vasculature: Scattered vascular calcifications XR/XR femur RT min 2V* [id number] IMPRESSION: 1. Right subcapital impacted displaced hip fracture. 2. Scattered vascular calcifications
--- NOTE | 2022-10-08 22:55 | ECG_ITS ---
[facility] Test Date: 2022-10-08 Pat Name: Krissy Muro Department: Room: Gender: Female Research Nurse: : 1940 Requested By: Aly Mcnulty Order Number: [id number] Eddy MD: Miryam Love M.D. Measurements Intervals [place] Rate: 64 P: 80 TN: 146 QRS: 38 QRSD: 91 T: 79 QT: 402 QTc: 417 Interpretive Statements SINUS RHYTHM MODERATE ST DEPRESSION [0.05+ mV ST DEPRESSION] No previous ECG available for comparison Electronically Signed On 10-09-2022 2:22:26 CDT by Miryam Love M.D. [email or web address] [email or web address] [facility] – [email or web address]/store/[id number]
[2022-10-08 23:07] LABS: Basophils # 0.1 10^3/uL (0.0-0.1); Basophils % 0.8 %; Hematocrit 36.6 % (37.0-47.0); Lymphocytes # 1.9 10^3/uL (0.8-4.8); Lymphocytes % 27.1 %; Mean Corpuscular HGB Conc 32.8 g/dL (30.0-36.0); Mean Corpuscular Hemoglobin 32.3 pg (28.0-34.0); Mean Corpuscular Volume 98.4 fl (81-99); Mean Platelet Volume 9.9 fL (7.4-10.4); Monocytes # 0.7 10^3/uL (0.2-0.9); Monocytes % 10.3 %; Neutrophils # 4.32 10^3/uL (1.8-7.7); Neutrophils % 61.2 %; Nucleated Red Blood Cells % 0 %; Platelet Count 214 10^3/cmm (130-400); Red Blood Count 3.72 10^6/uL (4.1-5.3); Red Cell Distribution Width 13.6 % (12.1-15.1); White Blood Count 7.1 10^3/uL (4.0-10.0)
[2022-10-08] MEDS: tetanus-dipt-pertussis 0.5 mL SDV IM (23:17)
[2022-10-08 23:29] LABS: INR 0.98 (0.8-1.2); Troponin(5th) Baseline 180 ng/L (0-10)
[2022-10-08 23:30] LABS: Partial Thromboplastin Time 27.8 SECONDS (23.9-36.7)
[2022-10-08 23:31] LABS: Alanine Aminotransferase 54 U/L (0-33); Albumin Level 3.4 g/dL (3.5-5.2); Alkaline Phosphatase 63 U/L (35-105); Anion Gap 15.6 (5-19); Aspartate Amino Transferase 69 U/L (0-32); Blood Urea Nitrogen 27 mg/dL (8-23); Calcium 8.5 mg/dL (8.5-10.5); Carbon Dioxide 26 mmol/L (22-29); Chloride 99 mmol/L (98-107); Globulin 2.1 g/dL (1.3-4.6); Glucose 82 mg/dL (65-115); Osmolality Calculated 284 mOsm/kg (285-295); Potassium 5.6 mmol/L (3.5-5.1); Sodium 135 mmol/L (136-145); Total Bilirubin 0.3 mg/dL (0.15-1.2); Total Protein 5.5 g/dL (6.6-8.7)
[2022-10-08] MEDS: iohexol 350 mg/mL 500 mL Btl (per mL) IV (23:57)
[2022-10-09] VITALS (18 sets, daily range): BP systolic 118–189; BP diastolic 49–74; PULSE 62–77; RESP 15–20; TEMP 36.4–36.9; O2SAT 89–98
--- NOTE | 2022-10-09 00:08 | ECG_ITS ---
[facility] Test Date: 2022-10-09 Pat Name: Krissy Muro Department: Room: Gender: Female Critical Care Technician: : 1940 Requested By: Aly Mcnulty Order Number: [id number] Eddy MD: Matthias Leigh M.D. Measurements Intervals [place] Rate: 70 P: 79 AL: 135 QRS: -1 QRSD: 97 T: 83 QT: 417 QTc: 452 Interpretive Statements SINUS RHYTHM SEPTAL MYOCARDIAL INFARCTION , PROBABLY OLD [40+ ms Q WAVE IN V1/V2] Compared to ECG 10/08/2022 23:23:55 Myocardial infarct finding now present ST (T wave) deviation no longer present Electronically Signed On 10-09-2022 16:23:50 CDT by Matthias Leigh M.D. [id number]
[2022-10-09] MEDS: sodium chloride 0.9% 500 ML 999 ML IV (00:48)
[2022-10-09 00:51] LABS: Add Urine Microscopic? NO; Blood Urine Neg (Negative); Glucose Urine UA Norm (Normal); Ketones Urine Negative (Negative); Nitrate Urine Negative (Negative); Protein Urine Neg (Negative); Urine Appearance Clear (CLEAR); Urine Color Light yellow (Yellow); pH Urine 5 (5-7)
[2022-10-09 00:52] LABS: Bilirubin Urine Neg (Negative); Charge for UA Resulting for Rev; Leukocyte Esterase Urine Negative (Negative); Urobilinogen Urine Neg (Negative)
[2022-10-09] MEDS: aspirin 81 mg Chew Tablet 324 MG PO (00:56)
[2022-10-09 01:16] LABS: Troponin 5 2HR Delta -29.2 ABS# (0-10)
[2022-10-09 01:17] LABS: Troponin 5 2HR 150.8 ng/L (0-10)
--- NOTE | 2022-10-09 02:11 | P.HP_ITS ---
Providers/Chief Complaint Admitting Physician: Jessica Abarca MD Primary Care Provider: Babs Mendenhall MD Chief Complaint: right hip pain History of Present Illness 82-year-old female with past medical history of cervical disc disease, lumbar disc disease, nicotine dependence, hypertension, hyperlipidemia, COPD, diabetes mellitus presented to the hospital for a fall that happened today along with hip pain. She states that she has been feeling lightheaded over the last few weeks and recently tripped over a rug and fell and broke her hip. She had a fall 5 years ago that also cause a hip fracture and another fall 3 weeks ago where she just scraped some screening. She denies chest pain, dyspnea, cardiovascular disease. She can barely walk across the room and normally uses a walker. She has generalized myalgias and has loss of appetite and eats only 1 small meal a day and has been experiencing fatigue and occasional swelling in her feet. She does not drink a lot and only has about a small bottle of water a day. Has a history of multiple surgeries including surgery on hip, appendectomy, cholecystectomy. Does have a history of diabetes and has seasonal allergies and lives alone and does not require assistance with her ADLs. Is a chronic smoker 1 pack/day. She is unable to walk at all due to pain. After she tripped over her rug today, EMS was called and they administered pain medication and she was brought to the hospital in vitally stable condition. On arrival blood pressure 140/57, respirate 18, pulse 63, temperature 97.7, saturating 92% on room air. She is accompanied by her sister today who is also her caregiver during the morning hours. EKG showed sinus rhythm. Baseline troponin 180, sodium 135, potassium 5.6, creatinine 1.9, AST 69, ALT 54, albumin 3.4, TSH 1.5, WBC 7.1, hemoglobin 12, platelet 214. Tibia-fibula x-ray:no acute findings Hip/pelvis x-ray:Right subcapital impacted displaced hip fracture. Femur x-ray:1. ? Right subcapital impacted displaced hip fracture. 2. ? Scattered vascular calcifications CT chest abdomen pelvis with contrast:1. ? Negative for traumatic injury to the chest. 2. ? Ascending thoracic aorta is dilated 3.6 cm, similar to prior exam. 3. ? Coronary artery atherosclerotic calcifications. 4. ? Cardiomegaly. 5. ? Mediastinal lymph nodes measuring up to 7.7 mm. 6. ? Right lower lobe 13.7 mm pulmonary nodule. Left lower lobe 11.7 mm nodule, new compared to prior exam. Lingular nodule measuring 15 mm abutting the pleural surface. Highly suspicious nodule(s). Consider non-emergent IMPRESSION: 1. ? Right subcapital impacted fracture with at least 1/2 shaft displacement. 2. ? Biliary dilation. 3. ? Cholecystectomy. 4. ? Bilateral renal cysts. 5. ? Left kidney chronic atrophy. 6. ? Constipation. 7. ? Calles catheter in the urinary bladder with air presumed iatrogenic. 8. ? Diverticulosis without diverticulitis. 9. ? Left hip arthroplasty changes. CT facial bones without contrast:Negative for fracture or dislocation. CT head without contrast:Negative for intracranial hemorrhage or mass effect. ? Calles catheter placed in the ER. 2-hour troponin, 6-hour troponin is pending at this time. Patient given DTaP in the ER. Medications/Allergies Home Medications Medication Instructions Recorded Confirmed Last Taken Type citalopram 20 mg tablet 20 mg PO DAILY 08/24/19 09/19/22 Unknown History diltiazem HCl 120 mg 120 mg PO DAILY 08/24/19 09/19/22 Unknown History capsule,extended release 12 hr docusate sodium 100 mg capsule 100 mg PO DAILY 08/24/19 09/19/22 Unknown History (Colace) latanoprost 0.005 % eye drops 1 drop ophthalmic (eye) DAILY 08/24/19 09/19/22 Unknown History ropinirole 2 mg tablet 2 mg PO .HS 08/24/19 09/19/22 Unknown History trazodone 50 mg tablet 50 mg PO .HS 08/24/19 09/19/22 Unknown History duloxetine 30 mg capsule,delayed 30 mg PO DAILY 05/30/20 09/19/22 Unknown Hi story release budesonide-formoterol HFA 80 2 puff inhalation BID #10.2 grams 07/24/20 09/19/22 Unknown Rx mcg-4.5 mcg/actuation aerosol inhaler (Symbicort) diclofenac sodium 1 % topical gel 2 g topical QID #100 grams 11/15/20 09/19/22 Unknown Rx (Voltaren) levothyroxine 100 mcg capsule 100 mcg PO DAILY 05/07/21 09/19/22 Unknown History gabapentin 300 mg capsule 300 mg PO TID 05/31/21 09/19/22 Unknown History tramadol 50 mg tablet 50 mg PO BID PRN 05/31/21 09/19/22 Unknown History naproxen sodium 220 mg tablet 220 mg PO BID PRN 06/06/21 09/19/22 Unknown Histo ry (Aleve) prednisone 5 mg tablet See Rx Instructions PO DAILY #60 05/01/22 09/19/22 Unknown Rx tabs prednisone 5 mg tablet See Rx Instructions PO .QOD #60 05/13/22 09/19/22 Unknown Rx tabs hydroxychloroquine 200 mg tablet 200 mg PO BID #60 tabs 09/24/22 Unknown Rx metformin 500 mg 24 hr 500 mg PO BID #60 tabs 09/30/22 Unknown Rx tablet,extended release Allergies Allergy/AdvReac Type Severity Reaction Status Date / Time Sulfa (Sulfonamide AdvReac Unknown Verified 10/09/22 01:56 Antibiotics) PFSH Acute PFSH: Medical History Cervical disc disease Lumbar disc disease Surgical History History of appendectomy History of cholecystectomy History of hemilaminectomy History of hysterectomy Family History Mother Cancer Other CAD (coronary artery disease) Diabetes Social History Smoking and tobacco status: never smoked Quit status (tobacco): considering quitting Second hand smoke exposure: Yes Smoking risk assessment/counseling performed?: Yes Alcohol intake: never Caregiver/support person: Yes Lives independently: Yes Household members: none Housing: Apartment Marital status: / Current occupational status: retired Pets and animals: No Current gender identity: Female Vitals/I&O/Wt Last Vital Signs Temp 97.7 F 10/08/22 22:47 Pulse 72 10/09/22 00:50 Resp 18 10/09/22 00:50 BP 159/72 10/09/22 00:50 Pulse Ox 91 10/09/22 00:50 O2 Del Method 10/09/22 00:50 10/08/22 10/08/22 10/09/22 14:59 22:59 06:59 Intake Total 500 / 500 Balance 500 / 500 Weight last 48 hrs Weight 54.431 kg Physical Exam Narrative: General: Alert oriented x3, patient seen laying in bed HEENT: Normocephalic, atraumatic, EOMI, breathing normally on room air, no acute respiratory distress Cardio: Regular rate rhythm, normal S1-S2 Respiratory: Good bilateral air entry, no wheezes no rhonchi appreciated GI: Abdomen soft, nontender,bowel sounds + Extremities: No edema bilateral lower extremities, right lower extremity shortened and externally rotated. Appears dehydrated. Calles draining clear yellow urine Urinary Catheter Management: Calles: Cath Placed During This Visit: yes Urinary Catheter Date of Insertion: 10/08/22 Urinary Catheter Time of Insertion: 23:37 Data 10/08/22 22:55 10/08/22 22:55 A&P Assessment and plan (1) Closed subcapital fracture of neck of right femur: (2) BRENDA (acute kidney injury): (3) Elevated troponin: (4) Multiple lung nodules: (5) Skin tear of left upper arm without complication: (6) Hypothyroidism: (7) Diabetes: (8) Essential hypertension: (9) COPD (chronic obstructive pulmonary disease): Qualifiers: COPD type: unspecified COPD Qualified Code(s): J44.9 - Chronic obstructive pulmonary disease, unspecified (10) Lung nodule: (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 #Acute kidney injury on CKD, baseline 1.2 #Hyperkalemia ? Continue duloxetine, hydroxychloroquine, levothyroxine, pantoprazole, prednisone 5 daily, ropinirole, citalopram, diltiazem ? Hold gabapentin at this time ? Hold aspirin in anticipation for surgery ? Pulmicort inhalation twice daily ? DuoNeb every 6 hours as needed ? Orthopedics consulted from the ER. Will await recommendations ? N.p.o. at midnight for possible procedure in a.m. ? Type and screen 2 units on hold for surgery ? Low-dose intensity insulin sliding scale ? Check orthostatic vitals ? TSH 1.50. Continue levothyroxine at current dose ? Continue latanoprost ophthalmic drops ? Vitals every 4 hours ? Place on telemetry ? Morphine 2 mg every 4 hours for pain ? Baseline troponin 180, await 2-hour and 6-hour troponin. Serial EKGs. ? Consult cardiology. Will hold off on anticoagulation at this time. ? Check echo ? Check CPK - Hold celexa at this time. - I reviewed EKg. no acute ischemic changes noted. Full code DVT prophylaxis: Heparin SQ twice daily Attestations Medical Necessity Statement*: Will cross > 2 midnight stay for management of hip fracture. Coding Level of Care Code Acute Code for Chg Fwd Diagnoses Closed subcapital fracture of neck of right femur S72.011A BRENDA (acute kidney injury) N17.9 Elevated troponin R77.8 Multiple lung nodules R91.8 Skin tear of left upper arm without complication S41.112A Hypothyroidism E03.9 Diabetes E11.9 Essential hypertension I10 COPD (chronic obstructive pulmonary disease) J44.9 COPD type: unspecified COPD Lung nodule R91.1 Positive QuantiFERON-TB Gold test R76.12 Arthralgia M25.50 Joint pain location: unspecified
[2022-10-09] MEDS: morphine 4 mg/mL SDV 1 mL IVP (02:50)
--- NOTE | 2022-10-09 02:55 | USCV_ITS ---
Krissy Muro Age: 82 Gender: F : 1940 Exam Date: 10/09/2022 03:48 Ordering Phys: Jessica Abarca MD Technologist: NIRAJ Exam Location: [facility] [place] Indication: nstemi BP: / HR: 86 Rhythm: Sinus Technical Quality: Adequate MEASUREMENTS (Male / Female) Normal Values 2D ECHO LV Diastolic Diameter PLAX 3.0 cm 4.2 - 5.9 / 3.9 - 5.3 cm LV Systolic Diameter PLAX 2.2 cm IVS Diastolic Thickness 1.2 cm 0.6 - 1.0 / 0.6 - 0.9 cm IVS Systolic Thickness 1.6 cm LVPW Diastolic Thickness 1.5 cm 0.6 - 1.0 / 0.6 - 0.9 cm LVPW Systolic Thickness 1.6 cm LVOT Diameter 1.9 cm LV Ejection Fraction 2D Teich 55.2 % LV Ejection Fraction MOD 2C 71.0 % LV Ejection Fraction 2C AL 74.0 % LA Diameter 2.7 cm LA Width 3.3 cm LA Height 3.0 cm RA Width 3.6 cm RA Height 3.9 cm Aorta at Sinotubular Diameter 2.7 cm IVC Diameter 0.9 cm M-MODE Aortic Annulus Diameter 2.9 cm LA Ao Ratio MM 1.1 MV E Point Septal Separation 0.4 cm DOPPLER AV Peak Velocity 116.0 cm/s LVOT Peak Velocity 92.0 cm/s AV Area Cont Eq vti 2.0 cm squared AV Area Cont Eq pk 2.2 cm squared MV Peak Velocity 139.0 cm/s MV Area PHT 3.6 cm squared Mitral E to A Ratio 0.6 MV E' Velocity 40.5 cm/s Mitral E to MV E' Ratio 9.3 Mitral E to LV E' Lateral Ratio 9.2 Mitral E to LV E' Septal Ratio 9.5 TR Peak Velocity 295.8 cm/s TR Peak Gradient 35.0 mmHg TV Peak E Velocity 60.0 cm/s Right Atrial Pressure 5.0 mmHg Pulmonary Artery Systolic Pressu 40.0 mmHg PV Peak Velocity 89.0 cm/s RV Acceleration Time 0.1 s RV Ejection Time 0.4 s RV AcT/ET 0.3 FINDINGS Left Ventricle Left ventricle is normal in size. LV systolic function is normal with EF of 55 to 60%. No regional wall motion abnormalities are seen. Grade 1 disatolic dysfunction Right Ventricle Normal in size and function Right Atrium Normal in size Left Atrium Normal in size Mitral Valve Structurally normal mitral valve. Aortic Valve Structurally normal aortic valve. No significant stenosis or regurgitation. Tricuspid Valve Mild tricuspid regurgitation. RVSP is 35-40mmHg. This is consistent with mild pulmonary hypertension. Pulmonic Valve Not well visualized. Trace pulmonic regurgitation. Pericardium Normal Aorta Normal in size IVC Appears to be normal CONCLUSIONS LV systolic function is normal with EF of 55 to 60% Grade 1 diastolic dysfunction Mild tricuspid regurgitation Mild pulmonary hypertension Trace pulmonic regurgitation No comparison studies are available Matthias Leigh MD (Electronically Signed) Final Date: 09 October 2022 10:10 S
[2022-10-09] MEDS: sodium chloride 0.9% 1,000 ML 75 ML IV ×2 (03:00→18:19)
[2022-10-09] MEDS: heparin 5,000 unit/mL INJ 1 mL 5000 UNIT SUBCUT ×2 (03:00→15:53)
--- NOTE | 2022-10-09 05:10 | ECG_ITS ---
[facility] Test Date: 2022-10-09 Pat Name: Krissy Muro Department: Room: 266 Gender: Female Drum Handler: : 1940 Requested By: Aly Mcnulty Order Number: [id number] Eddy MD: Matthias Leigh M.D. Measurements Intervals [place] Rate: 75 P: 34 UT: 132 QRS: 39 QRSD: 90 T: 32 QT: 394 QTc: 440 Interpretive Statements SINUS RHYTHM LOW QRS VOLTAGE IN EXTREMITY LEADS [QRS DEFLECTION < 0.5 mV IN LIMB LEADS] SEPTAL MYOCARDIAL INFARCTION , OF INDETERMINATE AGE [40+ ms Q WAVE IN V1/V2] Compared to ECG 10/09/2022 00:08:31 Low QRS voltage now present Myocardial infarct finding still present Electronically Signed On 10-09-2022 16:23:27 CDT by Matthias Leigh M.D. [id number]
[2022-10-09 05:46] LABS: Procalcitonin 0.07 ng/mL (0-0.5); Thyroid Stimulating Hormone 1.08 uIU/mL (0.27-4.20)
[2022-10-09 05:58] LABS: Creatine Phosphokinase 345 U/L (26-192)
[2022-10-09 06:10] LABS: Estmated Average Glucose 171; Hemoglobin A1C 7.6 % (4.0-6.0)
[2022-10-09 06:46] LABS: Glucose Point of Care 90 mg/dL (70-110)
[2022-10-09 07:11] LABS: Troponin 5 6HR 160.1 ng/L (0-10); Troponin 5 6HR Delta -19.9 ng/L (0-12)
--- NOTE | 2022-10-09 07:26 | PC.NURSE ---
See patient chart for written documentation of rounding during downtime.
[2022-10-09] MEDS: budesonide 0.5 mg/2 mL Neb INHALATION ×2 (07:28→20:58)
--- NOTE | 2022-10-09 08:26 | PC.PHAR ---
pt states her sister ian [phone] takes care of her of medications-left message on ian voicemail
[2022-10-09] MEDS: dilTIAZem ER (24HR) 120 mg Capsule PO (08:50)
[2022-10-09] MEDS: levothyroxine 100 mcg Tablet PO (08:51)
[2022-10-09] MEDS: docusate sodium 100 mg Capsule PO (08:51)
[2022-10-09] MEDS: hydroxychloroquine 200 mg Tablet PO ×2 (08:51→18:18)
[2022-10-09] MEDS: duloxetine 30 mg Capsule PO (08:51)
[2022-10-09] MEDS: predniSONE 5 mg Tablet PO (08:51)
[2022-10-09] MEDS: acetaminophen 325 mg Tablet 650 MG PO ×2 (08:52→15:58)
--- NOTE | 2022-10-09 10:02 | PM.CONSULT ---
Providers/Reason For Consult Consulting Physician/Specialty*: Matthias Leigh MD/ Cardiology Reason for Consult*: Troponin elevation Requesting Physician: Dr Mcnulty Attending Physician: Apolinar Escalona Primary Care Provider: Babs Mendenhall MD History of Present Illness History of Present Illness Krissy Muro is a 82 year old female with past medical history of hypertension with no prior cardiac history presented after her right hip fracture. She had fall several days ago. Cardiology was consulted as troponin was elevated at 180 and then trended down. EKG shows sinus rhythm with nonspecific ST-T wave changes. Echocardiogram was performed that showed normal LV systolic function with no regional wall motion abnormalities. She denies chest pain. Review of Systems Narrative: CONSTITUTIONAL: No fever chills weight loss or gain or night sweats. [] HEENT: Normocephalic, atraumatic.[] RESPIRATORY: Shortness of breath CARDIOVASCULAR: No chest pain GI: no nausea vomiting diarrhea. [] SECURITY INSPECTOR: No numbness, tingling, weakness or loss of function in any part of the body. [] MUSCULOSKELETAL: No knee or joint pain or rashes. [] Medications/Allergies Home Medications Medication Instructions Recorded Confirmed Last Taken Type docusate sodium 100 mg capsule 100 mg PO DAILY 08/24/19 10/09/22 Unknown History (Colace) latanoprost 0.005 % eye drops 1 drop ophthalmic (eye) BEDTIME 08/24/19 10/09/22 Unknown History ropinirole 2 mg tablet 2 mg PO BEDTIME 08/24/19 10/09/22 Unknown History trazodone 50 mg tablet 50 mg PO BEDTIME 08/24/19 10/09/22 Unknown History duloxetine 30 mg capsule,delayed 30 mg PO DAILY 05/30/20 10/09/22 Unknown History release gabapentin 300 mg capsule 300 mg PO TID 05/31/21 10/09/22 Unknown History tramadol 50 mg tablet 50 mg PO TID PRN Pain 05/31/21 10/09/22 Unknown History naproxen sodium 220 mg tablet 220 mg PO BID PRN Pain 06/06/21 10/09/22 Unknown History (Aleve) hydroxychloroquine 200 mg tablet 200 mg PO BID #60 tabs 09/24/22 10/09/22 Unknown Rx budesonide-formoterol HFA 80 2 puff inhalation BID PRN unknown 10/09/22 10/09/22 Unknown History mcg-4.5 mcg/actuation aerosol inhaler (Symbicort) diclofenac sodium 1 % topical gel 2 g topical QID PRN Pain 10/09/22 10/09/22 Unknown History (Voltaren Arthritis Pain) diltiazem HCl 120 mg 120 mg PO DAILY 10/09/22 10/09/22 Unknown History capsule,extended release 24 hr famotidine 40 mg tablet 40 mg PO BID 10/09/22 10/09/22 Unknown History levothyroxine 100 mcg tablet 100 mcg PO QAM 10/09/22 10/09/22 Unknown History metformin 500 mg tablet,extended 500 mg PO BID 10/09/22 10/09/22 Unknown History release 24 hr multivitamin 1 tab PO DAILY 10/09/22 10/09/22 Unknown History pantoprazole 40 mg tablet,delayed 40 mg PO BID 10/09/22 10/09/22 Unknown History release prednisone 5 mg tablet 5 - 10 mg PO DAILY 10/09/22 10/09/22 Unknown History spironolactone 25 mg tablet 25 mg PO DAILY 10/09/22 10/09/22 Unknown History Allergies Allergy/AdvReac Type Severity Reaction Status Date / Time Sulfa (Sulfonamide AdvReac Unknown Verified 10/09/22 01:56 Antibiotics) Current Medications Generic Name Dose Route Start Last Admin Trade Name Freq PRN Reason Stop Dose Admin Acetaminophen 650 mg 10/09/22 02:50 10/09/22 08:52 Acetaminophen 325 Mg Tablet PO 650 mg Q6H PRN Administration Mild/Mod Pain Or Temp >/= 101 Budesonide 0.5 mg 10/09/22 08:00 10/09/22 07:28 Budesonide 0.5 Mg/2 Ml Neb INHALATION 0.5 mg BID.RESPIRATORY MARLENI Administration Diltiazem HCl 120 mg 10/09/22 09:00 10/09/22 08:50 Diltiazem Er (24hr) 120 Mg Capsule PO 120 mg DAILY MARLENI Administration Docusate Sodium 100 mg 10/09/22 09:00 10/09/22 08:51 Docusate Sodium 100 Mg Capsule PO 100 mg DAILY MARLENI Administration Duloxetine HCl 30 mg 10/09/22 09:00 10/09/22 08:51 Duloxetine 30 Mg Capsule PO 30 mg DAILY MARLENI Administration Heparin Sodium (Porcine) 5,000 unit 10/09/22 03:00 10/09/22 03:00 Heparin 5,000 Unit/Ml Inj 1 Ml SUBCUT 5,000 unit Q12H MARLENI Administration Hydroxychloroquine Sulfate 200 mg 10/09/22 09:00 10/09/22 08:51 Hydroxychloroquine 200 Mg Tablet PO 200 mg BID MARLENI Administration Sodium Chloride 1,000 mls @ 75 mls/hr 10/09/22 03:00 10/09/22 03:00 Sodium Chloride 0.9% IV 75 mls/hr .[id number] MARLENI Administration Insulin Human Lispro 0 unit 10/09/22 08:00 10/09/22 07:38 Insulin Lispro 100 Unit/1 Ml SUBCUT Not Given WM&BEDTIME MARLENI Protocol Levothyroxine Sodium 100 mcg 10/09/22 09:00 10/09/22 08:51 Levothyroxine 100 Mcg Tablet PO 100 mcg DAILY MARLENI Administration Prednisone 5 mg 10/09/22 09:00 10/09/22 08:51 Prednisone 5 Mg Tablet PO 5 mg DAILY MARLENI Administration PFSH Acute PFSH: Medical History Cervical disc disease Lumbar disc disease Surgical History History of appendectomy History of cholecystectomy History of hemilaminectomy History of hysterectomy Family History Mother Cancer Other CAD (coronary artery disease) Diabetes Social History Smoking and tobacco status: never smoked Quit status (tobacco): considering quitting Second hand smoke exposure: Yes Smoking risk assessment/counseling performed?: Yes Alcohol intake: never Caregiver/support person: Yes Lives independently: Yes Household members: none Housing: Apartment Marital status: / Current occupational status: retired Pets and animals: No Current gender identity: Female Vitals/I&O/Wt Last Vital Signs Temp 98.1 F 10/09/22 08:00 Pulse 77 10/09/22 08:00 Resp 16 10/09/22 08:00 BP 136/50 10/09/22 08:00 Pulse Ox 92 10/09/22 08:00 O2 Del Method Room Air 10/09/22 08:00 10/08/22 10/09/22 10/09/22 22:59 06:59 14:59 Intake Total 500 / 500 Output Total 1400 / 1400 Balance -900 / -900 Weight last 48 hrs Weight 120 lb Physical Exam Narrative: GENERAL: Patient is alert, awake and oriented x3. [] NECK: No jugular vein distension. [] HEENT: No cyanosis. No icterus. No pallor. [] HEART: Regular S1 and S2. No murmur, rub or gallop. [] LUNGS: Clear to auscultate bilaterally. [] CENTRAL NERVOUS SYSTEM: Grossly nonfocal. [] EXTREMITIES: Lower extremities with 1+ edema bilaterally. Pulses palpable in the lower extremities, both dorsalis pedis and posterior tibial. [] Urinary Catheter Management: Calles: Cath Placed During This Visit: yes Reason for Continuing Indwelling Catheter: Other Urinary Catheter Date of Insertion: 10/08/22 Urinary Catheter Time of Insertion: 23:37 Data 10/08/22 22:55 10/08/22 22:55 A&P Assessment and plan (1) Elevated troponin: (2) BRENDA (acute kidney injury): (3) Diabetes: (4) Essential hypertension: Plan Patient's troponin elevation likely secondary to demand ischemia. No uptrend of the troponins. Has BRENDA. Echocardiogram shows normal LV systolic function. No further ischemic work-up at this time as has no chest pain. IV fluids Thank you for involving us with care of this patient. We will continue to follow. Please call with questions Consult Attestations Medical Necessity Statement: Care expected to cross 2 midnights. Coding Level of Care Code Acute Code for [facility] Fwd Diagnoses Elevated troponin R77.8 BRENDA (acute kidney injury) N17.9 Diabetes E11.9 Essential hypertension I10
[2022-10-09 10:58] LABS: Glucose Point of Care 86 mg/dL (70-110)
--- NOTE | 2022-10-09 12:20 | PM.CONSULT ---
Providers/Reason For Consult Consulting Physician/Specialty*: Estella Saba MD Reason for Consult*: Right subcapital hip fracture Requesting Physician: Aly Mcnulty MD Attending Physician: Apolinar Escalona Primary Care Provider: Babs Mendenhall MD History of Present Illness History of Present Illness Krissy Muro is a 82 year old female who presented to the emergency department shortly before midnight on October 08, 2022. She has multiple medical problems, and at the time of presentation, she was noted to have a subcapital right hip fracture. By history, she has a history of cervical and lumbar disc disease with nicotine dependence, hypertension, hyperlipidemia, COPD, diabetes, and history of prior left subcapital hip fracture. The patient reported feeling lightheaded over the few weeks prior to her presentation to the emergency room, but today, she tripped over a rug falling and fracturing her right hip. Upon presentation to the emergency department, she was found to have a significantly displaced right subcapital hip fracture. Remaining work-up included tib-fib and femur imaging, CT of the chest and abdomen with contrast. CT of facial bones without contrast and CT of head without contrast. Patient was admitted to the floor for definitive care. Medications/Allergies Home Medications Medication Instructions Recorded Confirmed Last Taken Type docusate sodium 100 mg capsule 100 mg PO DAILY 08/24/19 10/09/22 Unknown History (Colace) latanoprost 0.005 % eye drops 1 drop ophthalmic (eye) BEDTIME 08/24/19 10/09/22 Unknown History ropinirole 2 mg tablet 2 mg PO BEDTIME 08/24/19 10/09/22 Unknown History trazodone 50 mg tablet 50 mg PO BEDTIME 08/24/19 10/09/22 Unknown History duloxetine 30 mg capsule,delayed 30 mg PO DAILY 05/30/20 10/09/22 Unknown History release gabapentin 300 mg capsule 300 mg PO TID 05/31/21 10/09/22 Unknown History tramadol 50 mg tablet 50 mg PO TID PRN Pain 05/31/21 10/09/22 Unknown History naproxen sodium 220 mg tablet 220 mg PO BID PRN Pain 06/06/21 10/09/22 Unknown History (Aleve) hydroxychloroquine 200 mg tablet 200 mg PO BID #60 tabs 09/24/22 10/09/22 Unknown Rx budesonide-formoterol HFA 80 2 puff inhalation BID PRN unknown 10/09/22 10/09/22 Unknown History mcg-4.5 mcg/actuation aerosol inhaler (Symbicort) diclofenac sodium 1 % topical gel 2 g topical QID PRN Pain 10/09/22 10/09/22 Unknown History (Voltaren Arthritis Pain) diltiazem HCl 120 mg 120 mg PO DAILY 10/09/22 10/09/22 Unknown History capsule,extended release 24 hr famotidine 40 mg tablet 40 mg PO BID 10/09/22 10/09/22 Unknown History levothyroxine 100 mcg tablet 100 mcg PO QAM 10/09/22 10/09/22 Unknown History metformin 500 mg tablet,extended 500 mg PO BID 10/09/22 10/09/22 Unknown History release 24 hr multivitamin 1 tab PO DAILY 10/09/22 10/09/22 Unknown History pantoprazole 40 mg tablet,delayed 40 mg PO BID 10/09/22 10/09/22 Unknown History release prednisone 5 mg tablet 5 - 10 mg PO DAILY 10/09/22 10/09/22 Unknown History spironolactone 25 mg tablet 25 mg PO DAILY 10/09/22 10/09/22 Unknown History Allergies Allergy/AdvReac Type Severity Reaction Status Date / Time Sulfa (Sulfonamide AdvReac Unknown Verified 10/09/22 01:56 Antibiotics) Current Medications Generic Name Dose Route Start Last Admin Trade Name Freq PRN Reason Stop Dose Admin Acetaminophen 650 mg 10/09/22 02:50 10/09/22 08:52 Acetaminophen 325 Mg Tablet PO 650 mg Q6H PRN Administration Mild/Mod Pain Or Temp >/= 101 Budesonide 0.5 mg 10/09/22 08:00 10/09/22 07:28 Budesonide 0.5 Mg/2 Ml Neb INHALATION 0.5 mg BID.RESPIRATORY MARLENI Administration Diltiazem HCl 120 mg 10/09/22 09:00 10/09/22 08:50 Diltiazem Er (24hr) 120 Mg Capsule PO 120 mg DAILY MARLENI Administration Docusate Sodium 100 mg 10/09/22 09:00 10/09/22 08:51 Docusate Sodium 100 Mg Capsule PO 100 mg DAILY MARLENI Administration Duloxetine HCl 30 mg 10/09/22 09:00 10/09/22 08:51 Duloxetine 30 Mg Capsule PO 30 mg DAILY MARLENI Administration Heparin Sodium (Porcine) 5,000 unit 10/09/22 03:00 10/09/22 03:00 Heparin 5,000 Unit/Ml Inj 1 Ml SUBCUT 5,000 unit Q12H MARLENI Administration Hydroxychloroquine Sulfate 200 mg 10/09/22 09:00 10/09/22 08:51 Hydroxychloroquine 200 Mg Tablet PO 200 mg BID MARLENI Administration Sodium Chloride 1,000 mls @ 75 mls/hr 10/09/22 03:00 10/09/22 03:00 Sodium Chloride 0.9% IV 75 mls/hr .[id number] MARLENI Administration Insulin Human Lispro 0 unit 10/09/22 08:00 10/09/22 11:11 Insulin Lispro 100 Unit/1 Ml SUBCUT Not Given WM&BEDTIME MARLENI Protocol Levothyroxine Sodium 100 mcg 10/09/22 09:00 10/09/22 08:51 Levothyroxine 100 Mcg Tablet PO 100 mcg DAILY MARLENI Administration Prednisone 5 mg 10/09/22 09:00 10/09/22 08:51 Prednisone 5 Mg Tablet PO 5 mg DAILY MARLENI Administration PFSH Acute PFSH: Medical History Cervical disc disease Lumbar disc disease Surgical History History of appendectomy History of cholecystectomy History of hemilaminectomy History of hysterectomy Family History Mother Cancer Other CAD (coronary artery disease) Diabetes Social History Smoking and tobacco status: never smoked Quit status (tobacco): considering quitting Second hand smoke exposure: Yes Smoking risk assessment/counseling performed?: Yes Alcohol intake: never Caregiver/support person: Yes Lives independently: Yes Household members: none Housing: Apartment Marital status: / Current occupational status: retired Pets and animals: No Current gender identity: Female Vitals/I&O/Wt Last Vital Signs Temp 98.3 F 10/09/22 11:37 Pulse 73 10/09/22 11:37 Resp 16 04/12/23 11:37 BP 129/54 10/09/22 11:37 Pulse Ox 93 10/09/22 11:37 O2 Del Method Room Air 10/09/22 11:37 10/08/22 10/09/22 10/09/22 22:59 06:59 14:59 Intake Total 500 / 500 Output Total 1400 / 1400 Balance -900 / -900 Weight last 48 hrs Weight 120 lb Physical Exam Const: COMMON NORMALS: no acute distress, average body habitus, patient oriented x3 and alert GENERAL APPEARANCE: cooperative and comfortable ORIENTATION/CONSCIOUSNESS: Yes awake HENMT: COMMON NORMALS: normocephalic and atraumatic HEAD & SCALP: normocephalic and atraumatic Eye: GENERAL EYE: appearance normal, both eyes and all related structures Chest: COMMONS NORMALS: normal inspection of the chest Resp: COMMON NORMALS: normal respiratory effort EFFORT & INSPECTION: Yes able to speak in complete sentences and Yes symmetric chest movement Extremity: RIGHT LOWER EXTREMITY: Yes hip joint Right hip: Yes inspection (Minimal to no ecchymosis.), Yes ROM (Not evaluated secondary to fracture.) and Yes neurovascular exam (Intact distally.) Neuro: COMMON NORMALS: patient oriented x3 SENSORIUM/ORIENTATION: Yes alert Psych: COMMON NORMALS: mental status grossly normal APPEARANCE: Yes grossly normal ATTITUDE: Yes calm and Yes engaged ATTENTION/CONCENTRATION: Yes attention grossly intact Skin: COMMON NORMALS: no rashes or lesions noted GENERAL SKIN EXAM: no rashes or lesions noted Urinary Catheter Management: Calles: Cath Placed During This Visit: yes Reason for Continuing Indwelling Catheter: Other Urinary Catheter Date of Insertion: 10/08/22 Urinary Catheter Time of Insertion: 23:37 Data 10/08/22 22:55 10/08/22 22:55 Xray Ortho: My impression: I have personally reviewed and interpreted imaging studies from the emergency department today. The patient is status post left bipolar hip arthroplasty, and today, she presents with a right subcapital hip fracture which is significantly displaced. There is shortening of the femur secondary to this fracture. No other injury and within the pelvis is noted. The opposite left hip is in good position. A&P Assessment and plan (1) Closed subcapital fracture of neck of right femur: Patient presented after tripping on a rug and falling with onset of right hip pain and inability to ambulate. Imaging studies on presentation to the emergency room demonstrated a right subcapital hip fracture with significant displacement. Plans were made for right hip hemiarthroplasty with a bipolar prosthesis. Risks and complications were discussed with the patient. She understands and has had a similar procedure on her opposite hip remotely. This surgical procedure will be planned for early tomorrow morning. This is discussed with the medical team. The patient does have evidence of urinary tract infection, and this will be treated this evening so that she can be prepared for optimum operative outcome. Qualifiers: Encounter type: initial encounter Qualified Code(s): S72.011A - Unspecified intracapsular fracture of right femur, initial encounter for closed fracture Coding Level of Care Code Acute Code for [facility] Fwd Diagnoses Closed subcapital fracture of neck of right femur S72.011A Encounter type: initial encounter
[2022-10-09] MEDS: morphine 4 mg/mL SDV 1 mL 1 MG IVP ×2 (14:32→18:33)
[2022-10-09 16:11] LABS: Glucose Urine UA Norm (Normal); Ketones Urine 1+ (Negative); Leukocyte Esterase Urine 2+ (Negative); Protein Urine Neg (Negative); Specific Gravity, Urine 1.015 (1.005-1.030); Urine Color Dark Yellow (Yellow); Urobilinogen Urine Neg (Negative); pH Urine 5 (5-7)
[2022-10-09 16:12] LABS: Add Urine Microscopic? YES; Bilirubin Urine Neg (Negative); Blood Urine 2+ (Negative); Nitrate Urine Negative (Negative); Urine Appearance Hazy (CLEAR)
[2022-10-09 16:14] LABS: Add Urine Culture? Yes; Bacteria Urine 1+ /hpf; Hyaline Casts Urine 0-4 /lpf; Mucus Urine 1+ /hpf; RBC Urine 15-25 /hpf (0-2); Squamous Epithelial Cell Urine 0-4 /hpf (0-5); WBC Urine 80-100 /hpf (0-5)
--- NOTE | 2022-10-09 17:47 | P.PN_ITS ---
Subjective Subjective: She is having pain in her right hip. Otherwise pain or discomfort free. No chest pain or pressure. No shortness of breath. Reports she fell over backwards after she tripped on a rug. Lives alone. Has no family, her only close next of kin is her friend Josi Faith. Vitals/I&O/Wt Last Vital Signs Temp 98.4 F 10/09/22 16:00 Pulse 63 10/09/22 16:00 Resp 16 10/09/22 16:00 BP 126/55 10/09/22 16:00 Pulse Ox 91 10/09/22 16:00 O2 Del Method Room Air 10/09/22 16:00 10/09/22 10/09/22 10/09/22 06:59 14:59 22:59 Intake Total 500 / 500 120 / 120 1000 / 1120 Output Total 1400 / 1400 400 / 400 Balance -900 / -900 120 / 120 600 / 720 Weight last 48 hrs Weight 54.431 kg Physical Exam Const: COMMON NORMALS: patient oriented x3 and alert GENERAL APPEARANCE: cooperative and frail appearing ORIENTATION/CONSCIOUSNESS: Yes awake HENMT: COMMON NORMALS: oropharynx normal Neck/C-Spine: COMMON NORMALS: no JVD Resp: COMMON NORMALS: normal respiratory effort and clear to auscultation bilaterally AUSCULTATION: clear to auscultation bilaterally Cardio: COMMON NORMALS: no JVD, regular rhythm, S1 normal heart sound present, S2 normal heart sound present and No murmurs present (Cardio) RHYTHM: regular rhythm HEART SOUNDS: S1 normal heart sound present and S2 normal heart sound present GI: COMMON NORMALS: Normal to inspection, nondistended, normoactive bowel so unds present, Soft to palpation and non-tender PALPATION: Yes Soft to pal pation Extremity: COMMON NORMALS: no joint enlargement and no pedal edema OTHER: RLE warm, perfused. No swelling, bruising or wound at the right hip. Neuro: COMMON NORMALS: patient oriented x3 and moves all extremities SENSO RIUM/ORIENTATION: Yes alert Skin: COMMON NORMALS: no rashes or lesions noted GENERAL SKIN EXAM: no rashes or lesions noted Urinary Catheter Management: Calles: Cath Placed During This Visit: yes Reason for Continuing Indwelling Catheter: Other Urinary Catheter Date of Insertion: 10/08/22 Urinary Catheter Time of Insertion: 23:37 Data 10/08/22 22:55 04/11/23 22:55 A&P Assessment and plan (1) Closed subcapital fracture of neck of right femur: Appreciate cardiology assessment. Troponin elevation likely demand ischemia. She does remain chest pain-free. She does not want to undergo hip repair, does understand that she does have some risk factors of coronary disease which may be underlying as well. Hip repair tentatively scheduled for tomorrow. Cardiology and orthopedics documentation reviewed. (2) BRENDA (acute kidney injury): Requested CK, mildly elevated 345. We will follow-up in the morning. Continue hold diclofenac and discontinue at discharge. Continue to hold naproxen and discontinue at discharge. Continue gentle fluid challenge. Monitor for fluid overload. Follow-up renal function. (3) Elevated troponin: Appreciate cardiology assessment. Suspected demand ischemia. She does remain chest pain-free. Echocardiogram result noted, normal EF, grade 1 diastolic function, mild TVR, mild pulmonary hypertension, trace PVR. 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 Plan Hyperkalemia: Changed to low potassium. Follow-up repeat chemistry. #Right hip fracture #Fall associated with lightheadedness #Hypertension #Hyperlipidemia #COPD #Diabetes mellitus #Peripheral neuropathy #Hypothyroidism ? TSH 1.50. Continue levothyroxine at current dose #Seropositive rheumatoid arthritis #Glaucoma #Positive TB test in the past #NSTEMI type II #Acute kidney injury on CKD, baseline 1.2 #Hyperkalemia Attestations Medical Necessity Statement*: Continue admission for assessment management of right hip fracture in a lady with BRENDA, troponin elevation. Diagnoses Closed subcapital fracture of neck of right femur S72.011A BRENDA (acute kidney injury) N17.9 Elevated troponin R77.8 Multiple lung nodules R91.8 Skin tear of left upper arm without complication S41.112A Hypothyroidism E03.9 Diabetes E11.9 Essential hypertension I10 COPD (chronic obstructive pulmonary disease) J44.9 COPD type: unspecified COPD Lung nodule R91.1 Positive QuantiFERON-TB Gold test R76.12 Arthralgia M25.50 Joint pain location: unspecified Goals of care, counseling/discussion Z71.89
[2022-10-09 18:09] LABS: Glucose Point of Care 164 mg/dL (70-110)
[2022-10-09] MEDS: insulin lispro 100 unit/1 mL SUBCUT (18:18)
[2022-10-09 20:47] LABS: Glucose Point of Care 102 mg/dL (70-110)
[2022-10-09] MEDS: latanoprost 0.005% Op Soln 2.5 mL Btl 1 DROP EYE-BOTH (21:05)
[2022-10-09] MEDS: pregabalin 150 mg Capsule 300 MG PO (21:05)
[2022-10-09] MEDS: cefTRIAXone 1,000 MG in sodium chloride 0.9% (plus) 50 ML 100 MG IV (21:05)
[2022-10-10] VITALS (24 sets, daily range): BP systolic 122–182; BP diastolic 53–90; PULSE 62–76; RESP 16–20; TEMP 36.1–37.2; O2SAT 93–97
[2022-10-10] MEDS: morphine 4 mg/mL SDV 1 mL 1 MG IVP ×2 (02:57→23:39)
[2022-10-10 05:06] LABS: Basophils % 0.5 %; Hematocrit 36.8 % (37.0-47.0); Hemoglobin 11.6 g/dL (11.5-15.3); Lymphocytes # 0.8 10^3/uL (0.8-4.8); Mean Corpuscular HGB Conc 31.5 g/dL (30.0-36.0); Mean Corpuscular Hemoglobin 32.8 pg (28.0-34.0); Mean Platelet Volume 9.8 fL (7.4-10.4); Monocytes # 0.6 10^3/uL (0.2-0.9); Monocytes % 7.5 %; Neutrophils % 81.6 %; Nucleated Red Blood Cells % 0 %; Platelet Count 155 10^3/cmm (130-400); Red Blood Count 3.54 10^6/uL (4.1-5.3); Red Cell Distribution Width 13.6 % (12.1-15.1); White Blood Count 7.5 10^3/uL (4.0-10.0)
[2022-10-10 05:22] LABS: Alanine Aminotransferase 39 U/L (0-33); Albumin Level 2.6 g/dL (3.5-5.2); Alkaline Phosphatase 53 U/L (35-105); Anion Gap 15.2 (5-19); Aspartate Amino Transferase 44 U/L (0-32); Blood Urea Nitrogen 19 mg/dL (8-23); Calcium 7.6 mg/dL (8.5-10.5); Carbon Dioxide 23 mmol/L (22-29); Chloride 107 mmol/L (98-107); Creatine Phosphokinase 246 U/L (26-192); Globulin 2.2 g/dL (1.3-4.6); Glucose 103 mg/dL (65-115); Magnesium 1.5 mg/dL (1.7-2.3); Osmolality Calculated 293 mOsm/kg (285-295); Potassium 5.2 mmol/L (3.5-5.1); Sodium 140 mmol/L (136-145); Total Bilirubin 0.2 mg/dL (0.15-1.2); Total Protein 4.8 g/dL (6.6-8.7)
[2022-10-10] MEDS: sodium chloride 0.9% 1,000 ML 30 ML IV (06:30)
[2022-10-10] MEDS: acetaminophen 1,000 MG/100 ML PIGGYBACK 400 MG IV ×3 (06:30→23:30)
[2022-10-10 06:43] LABS: Glucose Point of Care 95 mg/dL (70-110)
[2022-10-10] MEDS: ceFAZolin 2,000 MG in sodium chloride 0.9% (plus) 50 ML 100 MG IV (06:58)
[2022-10-10] MEDS: ceFAZolin 1,000 mg SDV 1000 MG IRRIGATION (07:53)
--- NOTE | 2022-10-10 08:25 | ANES.PREANE2 ---
Pre-Anesthetic Assessment Height/Weight: Height 1.63 m Weight 54.431 kg Temp Pulse Resp BP Pulse Ox O2 Del Method 98.9 F 67 18 166/60 95 Room Air 10/10/22 06:18 10/10/22 06:18 10/10/22 06:18 10/10/22 06:18 10/10/22 06:18 10/10/22 06:18 Preop Diagnosis: Right Subcapital Hip Fracture Operation Date: 10/10/22 07:00 Proposed Procedures p Hemiarthroplasty Hip(Right) - Estella Saba MD Familial anesthetic complications: none Was Beta Airam taken within 24 hours: N/A Was Clonidine taken within 24 hours: N/A Last intake: Intake Last Liquid Date 10/09/22 Last Liquid Time 22:00 Last Solid Date 10/09/22 Last Solid Time 17:00 Social No alcohol and No tobacco Exam alert, oriented x 3, clear to auscultation bilaterally and regular rate & rhythm Airway Submandibular: within normal limits Cervical ROM: within normal limits Mallampati: Class II Dentition: false Pulmonary Chronic Obstructive Pulmonary Disease CV/HEM Coronary Artery Disease, Hypertension and Myocardial Infarction Metabolic Diabetes Mellitus and Thyroid Disease chronic steroids Musc/skel Lower Back Pain, Osteoarthritis/DJD and Rheumatoid Arthritis Anesthetic Plan ASA status: 3 Anesthesia: Regional (specify below) (SAB) Medications/Allergies Home Medications Medication Instructions Recorded Confirmed Last Taken Type docusate sodium 100 mg capsule 100 mg PO DAILY 08/24/19 10/09/22 Unknown History (Colace) latanoprost 0.005 % eye drops 1 drop ophthalmic (eye) BEDTIME 08/24/19 10/09/22 Unknown History ropinirole 2 mg tablet 2 mg PO BEDTIME 08/24/19 10/09/22 Unknown History trazodone 50 mg tablet 50 mg PO BEDTIME 08/24/19 10/09/22 Unknown History duloxetine 30 mg capsule,delayed 30 mg PO DAILY 05/30/20 10/09/22 Unknown History release gabapentin 300 mg capsule 300 mg PO TID 05/31/21 10/09/22 Unknown History tramadol 50 mg tablet 50 mg PO TID PRN Pain 05/31/21 10/09/22 Unknown History naproxen sodium 220 mg tablet 220 mg PO BID PRN Pain 06/06/21 10/09/22 Unknown History (Aleve) hydroxychloroquine 200 mg tablet 200 mg PO BID #60 tabs 09/24/22 10/09/22 Unknown Rx budesonide-formoterol HFA 80 2 puff inhalation BID PRN unknown 10/09/22 10/09/22 Unknown History mcg-4.5 mcg/actuation aerosol inhaler (Symbicort) diclofenac sodium 1 % topical gel 2 g topical QID PRN Pain 10/09/22 10/09/22 Unknown History (Voltaren Arthritis Pain) diltiazem HCl 120 mg 120 mg PO DAILY 10/09/22 10/09/22 Unknown History capsule,extended release 24 hr famotidine 40 mg tablet 40 mg PO BID 10/09/22 10/09/22 Unknown History levothyroxine 100 mcg tablet 100 mcg PO QAM 10/09/22 10/09/22 Unknown History metformin 500 mg tablet,extended 500 mg PO BID 10/09/22 10/09/22 Unknown History release 24 hr multivitamin 1 tab PO DAILY 10/09/22 10/09/22 Unknown History pantoprazole 40 mg tablet,delayed 40 mg PO BID 10/09/22 10/09/22 Unknown History release prednisone 5 mg tablet 5 - 10 mg PO DAILY 10/09/22 10/09/22 Unknown History spironolactone 25 mg tablet 25 mg PO DAILY 10/09/22 10/09/22 Unknown History Allergies Allergy/AdvReac Type Severity Reaction Status Date / Time Sulfa (Sulfonamide AdvReac Unknown Verified 10/10/22 06:22 Antibiotics) Current Medications Generic Name Dose Route Start Last Admin Trade Name Freq PRN Reason Stop Dose Admin Acetaminophen 650 mg 10/09/22 02:50 10/09/22 15:58 Acetaminophen 325 Mg Tablet PO 650 mg Q6H PRN Administration Mild/Mod Pain Or Temp >/= 101 Budesonide 0.5 mg 10/09/22 08:00 10/09/22 20:58 Budesonide 0.5 Mg/2 Ml Neb INHALATION 0.5 mg BID.RESPIRATORY MARLENI Administration Diltiazem HCl 120 mg 10/09/22 09:00 10/09/22 08:50 Diltiazem Er (24hr) 120 Mg Capsule PO 120 mg DAILY MARLENI Administration Docusate Sodium 100 mg 10/09/22 09:00 10/09/22 08:51 Docusate Sodium 100 Mg Capsule PO 100 mg DAILY MARLENI Administration Duloxetine HCl 30 mg 10/09/22 09:00 10/09/22 08:51 Duloxetine 30 Mg Capsule PO 30 mg DAILY MARLENI Administration Heparin Sodium (Porcine) 5,000 unit 10/09/22 03:00 10/10/22 02:51 Heparin 5,000 Unit/Ml Inj 1 Ml SUBCUT Not Given Q12H MARLENI Hydroxychloroquine Sulfate 200 mg 10/09/22 09:00 10/09/22 18:18 Hydroxychloroquine 200 Mg Tablet PO 200 mg BID MARLENI Administration Sodium Chloride 1,000 mls @ 75 mls/hr 10/09/22 03:00 10/10/22 06:04 Sodium Chloride 0.9% IV Infused .[id number] MARLENI Infusion Ceftriaxone Sodium 1,000 mg/ 50 mls @ 100 mls/hr 10/09/22 20:15 10/09/22 22:45 Sodium Chloride IV Infused Q12H MARLENI Infusion Protocol Sodium Chloride 1,000 mls @ 30 mls/hr 10/10/22 06:15 10/10/22 06:30 Sodium Chloride 0.9% IV 10/11/22 06:14 30 mls/hr .Q24H MARLENI Administration Insulin Human Lispro 0 unit 10/09/22 08:00 10/09/22 21:05 Insulin Lispro 100 Unit/1 Ml SUBCUT Not Given WM&BEDTIME MARLENI Protocol Latanoprost 1 drop 10/09/22 09:00 10/09/22 21:05 Latanoprost 0.005% Op Soln 2.5 Ml Btl EYE-BOTH 1 drop DAILY MARLENI Administration Levothyroxine Sodium 100 mcg 10/09/22 09:00 10/09/22 08:51 Levothyroxine 100 Mcg Tablet PO 100 mcg DAILY MARLENI Administration Morphine Sulfate 1 mg 10/09/22 02:50 10/10/22 02:57 Morphine 4 Mg/Ml Sdv 1 Ml IVP 1 mg Q4H PRN Administration SEVERE PAIN Prednisone 5 mg 10/09/22 09:00 10/09/22 08:51 Prednisone 5 Mg Tablet PO 5 mg DAILY MARLENI Administration PFSH Anesthesia Medical History Cervical disc disease Lumbar disc disease Surgical History History of appendectomy History of cholecystectomy History of hemilaminectomy History of hysterectomy Family History Mother Cancer Other CAD (coronary artery disease) Diabetes Social History Smoking and tobacco status: never smoked Quit status (tobacco): considering quitting Second hand smoke exposure: Yes Smoking risk assessment/counseling performed?: Yes Alcohol intake: never Caregiver/support person: Yes Lives independently: Yes Household members: none Housing: Apartment Marital status: / Current occupational status: retired Pets and animals: No Current gender identity: Female Data Anesthesia 10/10/22 04:40 10/10/22 04:40 Short CBC 10/08/22 10/10/22 Range/Units 22:55 04:40 WBC 7.1 7.5 (4.0-10.0) 10^3/uL Hgb 12.0 11.6 (11.5-15.3) g/dL Hct 36.6 L 36.8 L (37.0-47.0) % MCV 98.4 104.0 H D (81-99) fl Plt Count 214 155 (130-400) 10^3/cmm Neut % (Auto) 61.2 81.6 % Neut # (Auto) 4.32 6.10 (1.8-7.7) 10^3/uL BMP 10/08/22 10/10/22 22:55 04:40 Sodium 135 L 140 Potassium 5.6 H 5.2 H Chloride 99 107 Carbon Dioxide 26 23 BUN 27 H 19 Creatinine 1.9 H 0.9 Glucose 82 103 Calcium 8.5 7.6 L Cardiac Enzymes 10/08/22 10/09/22 10/09/22 Range/Units 22:55 00:50 00:50 Creatine Kinase 345 H* (26-192) U/L Troponin T Baseline 180 H* (0-10) ng/L Troponin T 120 Minute 150.8 H (0-10) ng/L Delta Troponin T -29.2 L (0-10) ABS# Troponin T Hi Sens 6Hr (0-10) ng/L Troponin T Hi Sens 6Hr Delta (0-12) ng/L 10/09/22 10/10/22 Range/Units 05:36 04:40 Creatine Kinase 246 H (26-192) U/L Troponin T Baseline (0-10) ng/L Troponin T 120 Minute (0-10) ng/L Delta Troponin T (0-10) ABS# Troponin T Hi Sens 6Hr 160.1 H (0-10) ng/L Troponin T Hi Sens 6Hr Delta -19.9 L (0-12) ng/L Liver Function 10/08/22 10/10/22 Range/Units 22:55 04:40 Total Bilirubin 0.3 0.2 (0.15-1.2) mg/dL AST 69 H 44 H (0-32) U/L ALT 54 H 39 H (0-33) U/L Alkaline Phosphatase 63 53 (35-105) U/L Albumin 3.4 L 2.6 L (3.5-5.2) g/dL Urine 10/08/22 10/09/22 Range/Units 23:41 14:36 Urine Color Light yellow Dark yellow (Yellow) Urine Appearance Clear Hazy A (CLEAR) Urine pH 5 5 (5-7) Ur Specific [place] 1.010 1.015 (1.005-1.030) Urine Protein Neg Neg (Negative) Urine Glucose (UA) Norm Norm (Normal) Urine Ketones Negative 1+ H (Negative) Urine Nitrate Negative Negative (Negative) Urine Bilirubin Neg Neg (Negative) Ur Leukocyte Esterase Negative 2+ H (Negative) Urine RBC 15-25 H (0-2) /hpf Urine WBC 80-100 H (0-5) /hpf Coags 10/08/22 22:55 PT 13.30 INR 0.98 APTT 27.8 Cardiac Studies: Echocardiogram 10/09/22
--- NOTE | 2022-10-10 08:42 | XR_ITS ---
WS: [id number] EXAMINATION: XR pelvis 1-2V* [id number] REASON FOR EXAM: Status post right bipolar hip arthroplasty COMPARISON: None available. ORDER DATE: 10/10/2022 9:02 AM FINDINGS: There is no sign of any acute osseous or articular abnormality. There are bilateral total hip arthrop lasties with acute postsurgical changes on the right include intra-articular and periarticular soft t issue gas and edema. There are no specific soft tissue abnormalities. XR/XR pelvis 1-2V* [id number] IMPRESSION: Postsurgical changes of right hip arthroplasty
--- NOTE | 2022-10-10 08:47 | P.OP_ITS ---
Operative Report Date of procedure: October 10, 2022 Pre-op diagnosis: Right subcapital hip fracture, displaced Post-op diagnosis: Right subcapital hip fracture, displaced Post-op findings: Significantly displaced right subcapital hip fracture Procedure done: Right hip hemiarthroplasty, bipolar Implants: [employer] [facility] bipolar hip arthroplasty system with an Accolade II 127 degree neck angle hip system size 4 with a V40 taper, a size 45 mm outer diameter by 28 mm inner diameter universal bipolar component head, and a 28 mm outer diameter by +0 mm offset femoral head Specimens removed/disposition: Bone, disposed of Pathology: none sent Surgeon: Estella Saba Personal Computer Specialist: [facility] Anesthesia: MAC (With spinal, ASA 3) Estimated blood loss (mL): 25 IV fluids (mL): 700 Urine output (mL): 100 Complications: None Findings: Displaced right subcapital hip fracture with significant shortening. Following the surgical procedure, the hip was stable at 90 degrees of flexion with 40 degrees of adduction and 80 degrees of internal rotation. It was also stable to toe hang. Condition: stable Disposition: PACU Brief History: Krissy Muro is a 82 year old female who presented to the emergency department shortly before midnight on October 08, 2022.? She has multiple medical problems, and at the time of presentation, she was noted to have a subcapital right hip fracture.? By history, she has a history of cervical and lumbar disc disease with nicotine dependence, hypertension, hyperlipidemia, COPD, diabetes, and history of prior left subcapital hip fracture.? The patient reported feeling lightheaded over the few weeks prior to her presentation to the emergency room, but today, she tripped over a rug falling and fracturing her right hip.? Upon presentation to the emergency department, she was found to have a significantly displaced right subcapital hip fracture.? Remaining work-up included tib-fib and femur imaging, CT of the chest and abdomen with contrast.? CT of facial bones without contrast and CT of head without contrast.? Patient was admitted to the floor for definitive care. Procedure: The patient was brought to the operating theater, and after undergoing adequate spinal anesthesia with MAC, ASA 3, was transferred to the operating room table. The patient was placed in the full lateral position and held in place with the pegboard. Patient's right lower extremity was draped free and was subsequently prepped and further draped free. A surgical pause was performed prior to co mmencement of the surgical procedure. During the surgical pause, we confirmed the site and side of surgery as well as administration of preoperative prophylactic antibiotic and availability of equipment. Additionally, we confirmed preoperative surgical markings. X-rays are also reviewed during this time. Upon positioning, the patient was noted to have early sacral breakdown as well as skin tears x3 on this right lower extremity about the knee. Following the surgical pause, an incision was made centering over the greater trochanter continuing proximally and distally as necessary to allow access to the hip joint. Dissection continued through skin and soft tissue using scalpel. Incision was obtained using electrocautery. Tensor fascia babak was identified and incised longitudinally. Sciatic nerve was identified and protected throughout the surgical procedure. A Charnley U retractor was placed with care being taken to protect the sciatic nerve during placement. The hip was internally rotated. Piriformis muscle was then identified, tagged, and subsequently incised from the posterior aspect of the hip joint. The remaining short external rotators were also incised. These were then elevated off the capsule and the capsule was entered in a T-type fashion. Each side of the capsule was then tagged.? At that point, the femoral head was removed from the acetabulum utilizing a corkscrew.? It was subsequently measured for appropriate size of the head component.? The proximal femur was brought into an appropriate position of the femoral neck osteotomy was accomplished. This was in appropriate position for placement of the prosthetic component. The appropriate size trial was chosen. This was a size 45 mm which seated nicely.? We trialed a 44 mm as well as a 46 mm,, but this was felt to not give adequate stability.? Therefore size 45 mm was the chosen size for final implantation. Femoral field care advocate was then placed and attention was directed to the proximal femur. Initially, the proximal femur was addressed with a box chisel, and this was followed by a canal finder and subsequently broaches. The hip was broached to a size 4 Accolade II 127 degree neck angle hip stem. Size 4 broach w as noted to fit nicely and have good fit and fill. Therefore this was to be the chosen component. Trial reduction was accomplished with a 45 mm bipolar cup shell and a 28 mm x +0 mm femoral head. With this, the above-noted stabilities were accomplished. This was felt to be appropriate and therefore trial components were removed and the hip was irrigated. Acetabulum was evaluated for any loose bodies or other soft tissues requiring resection. We then prepared for implantation. The hip stem was impacted into position, and onto this was placed the construct of the universal head bipolar component size 45 mm outer diameter by 28 mm inner diameter with a [facility] femoral head size 28 mm outer diameter by +0 mm neck offset. This was placed onto the trunnion of the femoral component. It was impac marcia into position and pulled upon to assure that there was no dissociation. Once again the hip was irrigated and suctioned dry and was reduced. We then irrigated the hip further with 20 mL of Betadine mixed into 500 mL of normal saline. This was allowed to remain in the wound for approximately 3 minutes. It was then suctioned dry and irrigated with normal saline. This was suctioned dry again and closure was accomplished with 0 Vicryl in the capsular tissues followed by reattachment of the piriformis with 0 Vicryl. Additionally, the tensor was closed with 0 Vicryl in an interrupted fashion. Romero bcutaneous tissues were closed with a combination of 2-0 Monocryl. Skin was closed with 3-0 Monocryl. This was followed by Dermabond pernio. A sterile dressing was placed consisting of OpSite. The patient was returned the Recovery Room in satisfactory condition.? She was placed in an abduction pillow.? There were no complications. The patient will be discharged to the floor for postoperative rehabilitation and pain management. Related Problem List Diagnoses (1) Closed subcapital fracture of neck of right femur:
[2022-10-10 08:55] LABS: Glucose Point of Care 222 mg/dL (70-110)
[2022-10-10] MEDS: cholecalciferol (vitamin D3) 1,000 unit Tablet 1000 UNIT PO (10:20)
[2022-10-10] MEDS: multivitamin therapeutic Tablet 1 TAB PO (10:20)
[2022-10-10] MEDS: calcium carbonate 500 mg Chew Tablet 1000 MG PO ×2 (10:20→18:00)
[2022-10-10] MEDS: mupirocin oint 22 gm 1 APPLIC NASAL ×2 (10:20→18:01)
[2022-10-10] MEDS: sennosides-docusate Tablet 2 TAB PO ×2 (10:20→18:01)
[2022-10-10 12:06] LABS: Glucose Point of Care 107 mg/dL (70-110)
--- NOTE | 2022-10-10 12:40 | PC.CHAP ---
Pastoral Care Encounter/Spiritual Assessment Type of Contact [] Declined glue jointer feeder visit [] Patient/Family/Request visit [] Outpatient visit [] Follow-up visit [] Physician referral [] Code/Alert [x] Routine visit [] Staff referral [] Actively dying [] Patient sleeping [] Family support [] [] Out of room [] Palliative care [] [x] Receiving care in room [] Pre-surgical visit [] Trauma [] Long length of stay [] ICU visit [] Other: Relational/Emotional Strength [x] Patient feels connected with others/family/visitors/staff [] Distress [] Loneliness/isolation [] Abandonment Spirituality of Patient [x] Person of Dayanna [] Attends Buddhism of their Dayanna [x] Believes in Prayer [] Reads Bible or Hindu materials [] There are Spiritual issues to be addressed Gas Pipe Layer Interventions [x] Prayer [x] Active listening [x] Non-anxious presence [x] Spiritual/emotional support [] Crisis/trauma care [x] Spiritual counseling [] Bereavement support [] Provided bereavement packet [] Provided Bible/devotional materials [] Provided toy/stuffed animal, coloring book to patient or family member [] Provided Communion [] Anointing/[place] [] Salvation [x] Completed spiritual assessment [] Other: Impact on Illness or Injury [] Angry [] Fearful [] Anxious [] Often cries [] Exhaustion [] Unable to work [] Unable to attend taoist [] Unable to walk/stand [] Unable to read [] Unable to drive [] Unable to eat/drink [] Unable to sleep [] Unable to be with family [] Patient intubated [] Other: Summary not suer about alexis or what needs to be done checking with doctor well go home Time spent with patient 10 mins
--- NOTE | 2022-10-10 14:26 | PM.PN ---
Subjective Subjective: Patient had surgery and doing well. No chest pain Vitals/I&O/Wt Last Vital Signs Temp 97.0 F L 10/10/22 09:33 Pulse 75 10/10/22 11:44 Resp 18 10/10/22 11:44 BP 157/63 10/10/22 10:25 Pulse Ox 94 10/10/22 11:44 O2 Del Method Room Air 10/10/22 11:44 10/09/22 10/10/22 10/10/22 22:59 06:59 14:59 Intake Total 1050 / 1170 1000 / 2170 1275 / 1275 Output Total 600 / 600 375 / 375 Balance 450 / 570 1000 / 1570 900 / 900 Weight last 48 hrs Weight 120 lb Physical Exam Narrative: GENERAL: Patient is alert, awake and oriented x3. [] NECK: No jugular vein distension. [] HEENT: No cyanosis. No icterus. No pallor. [] HEART: Regular S1 and S2. No murmur, rub or gallop. [] LUNGS: Clear to auscultate bilaterally. [] CENTRAL NERVOUS SYSTEM: Grossly nonfocal. [] EXTREMITIES: Lower extremities with 1+ edema bilaterally. Urinary Catheter Management: Calles: Cath Placed During This Visit: yes Reason for Continuing Indwelling Catheter: Other Urinary Catheter Date of Insertion: 10/08/22 Urinary Catheter Time of Insertion: 23:37 Data 10/13/22 02:58 10/13/22 02:58 A&P Assessment and plan (1) Elevated troponin: (2) BRENDA (acute kidney injury): (3) Diabetes: (4) Essential hypertension: Plan Patient is overall stable. Surgery was uneventful. Continue IV fluids Thank you for involving us with care of this patient. Please call with questions Attestations Medical Necessity Statement*: Care expected to cross 2 midnights. Coding Level of Care Code Acute Code for Chg Fwd Diagnoses Elevated troponin R77.8 BRENDA (acute kidney injury) N17.9 Diabetes E11.9 Essential hypertension I10
[2022-10-10] MEDS: heparin 5,000 unit/mL INJ 1 mL 5000 UNIT SUBCUT (14:34)
[2022-10-10] MEDS: ceFAZolin 1,000 MG in sodium chloride 0.9% (plus) 50 ML 100 MG IV (14:51)
--- NOTE | 2022-10-10 15:22 | ANE.PACU2 ---
Inpatient post-anesthesia follow up: Airway intact: Yes Vital signs: Temperature 97.0 F Pulse Rate 69 Respiratory Rate 18 Blood Pressure 167/74 Pulse Oximetry 93 Oxygen Delivery Me thod Room Air Oxygen Flow Rate Fraction of Inspir ed Oxygen Hydration adequate: Yes Nausea and vomiting: No Pain level: 1 Mental status: Baseline
[2022-10-10] MEDS: oxyCODONE 5 mg IR Tab/Cap PO ×2 (15:38→21:50)
[2022-10-10 16:49] LABS: Glucose Point of Care 79 mg/dL (70-110)
[2022-10-10] MEDS: iron polysaccharide complex 150 mg Capsule PO (18:01)
[2022-10-10] MEDS: hydroxychloroquine 200 mg Tablet PO (18:01)
[2022-10-10 18:14] LABS: Glucose Point of Care 193 mg/dL (70-110)
[2022-10-10] MEDS: ipratropium-albuterol 3 mL Neb INHALATION (19:38)
[2022-10-10] MEDS: budesonide 0.5 mg/2 mL Neb INHALATION (19:38)
[2022-10-10] MEDS: chlorhexidine gluconate 0.12% Btl 473 mL 30 ML MUCOUS MEM (19:58)
[2022-10-10] MEDS: cefTRIAXone 1,000 MG in sodium chloride 0.9% (plus) 50 ML 100 MG IV (19:59)
[2022-10-10] MEDS: sodium chloride 0.9% 1,000 ML 75 ML IV (20:02)
[2022-10-10 20:46] LABS: Glucose Point of Care 218 mg/dL (70-110)
--- NOTE | 2022-10-10 21:21 | P.PN_ITS ---
Subjective Subjective: She is doing okay this morning. Denies any pain. He is done with her surgery. Vitals/I&O/Wt Last Vital Signs Temp 98.1 F 10/10/22 19:14 Pulse 70 10/10/22 19:48 Resp 18 10/10/22 19:48 BP 147/57 10/10/22 19:14 Pulse Ox 96 10/10/22 19:48 O2 Del Method Room Air 10/10/22 19:48 10/10/22 10/10/22 10/10/22 06:59 14:59 22:59 Intake Total 1000 / 2170 1375 / 1375 220 / 1595 Output Total 375 / 375 Balance 1000 / 1570 1000 / 1000 220 / 1220 Weight last 48 hrs Weight 54.431 kg Physical Exam Const: COMMON NORMALS: patient oriented x3 and alert GENERAL APPEARANCE: cooperative and frail appearing ORIENTATION/CONSCIOUSNESS: Yes awake HENMT: COMMON NORMALS: oropharynx normal Neck/C-Spine: COMMON NORMALS: no JVD Resp: COMMON NORMALS: normal respiratory effort and clear to auscultation bilaterally AUSCULTATION: clear to auscultation bilaterally Cardio: COMMON NORMALS: no JVD, regular rhythm, S1 normal heart sound present, S2 normal heart sound present and No murmurs present (Cardio) RHYTHM: regular rhythm HEART SOUNDS: S1 normal heart sound present and S2 normal heart sound present GI: COMMON NORMALS: Normal to inspection, nondistended, normoactive bowel sounds present, Soft to palpation and non-tender PALPATION: Yes Soft to palpation Extremity: COMMON NORMALS: no joint enlargement and no pedal edema OTHER: RLE warm, perfused. Clean postoperative dressing right hip. No bleeding, no bruising. Neuro: COMMON NORMALS: patient oriented x3 and moves all extremities SENSORIUM/ORIENTATION: Yes alert Skin: COMMON NORMALS: no rashes or lesions noted GENERAL SKIN EXAM: no rashes or lesions noted Urinary Catheter Management: Calles: Cath Placed During This Visit: yes Reason for Continuing Indwelling Catheter: Other Urinary Catheter Date of Insertion: 10/08/22 Urinary Catheter Time of Insertion: 23:37 Data 10/10/22 04:40 10/10/22 04:40 A&P Assessment and plan (1) Closed subcapital fracture of neck of right femur: Status post right hip hemiarthroplasty. Feeling well postop early. Heparin VTE prophylaxis. Follow-up hemoglobin requested. PT, OT Motion able to remove Calles hopefully. Disposition planning would benefit from amotivation, arrangements for SNF underway. Qualifiers: Encounter type: initial encounter Qualified Code(s): S72.011A - Un specified intracapsular fracture of right femur, initial encounter for closed fracture (2) Dysphagia: ST evaluation. Full liquid diet for now. (3) BRENDA (acute kidney injury): Resolved. Creatinine noted normalized. BUN 19. Still some hyperkalemia 5.2. Follow-up chemistry for potassium and renal function. Hypomagnesemia noted: Magnesium 1.5. Replace. Recheck. Continue hold diclofenac and discontinue at discharge. Continue to hold naproxen and discontinue at discharge. Stop IV fluid. (4) Elevated troponin: Appreciate cardiology assessment. Suspected demand ischemia. She does remain chest pain-free. Echocardiogram result noted, normal EF, grade 1 diastolic function, mild TVR, mild pulmonary hypertension, trace PVR. 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 Plan Hyperkalemia: Gradually improving. Follow-up chemistry request. Hypomagnesemia: Magnesium noted low at 1.5. Replace. Recheck magnesium requested. #Right hip fracture #Fall associated with lightheadedness #Hypertension #Hyperlipidemia #COPD #Diabetes mellitus #Peripheral neuropathy #Hypothyroidism ? TSH 1.50. Continue levothyroxine at current dose #Seropositive rheumatoid arthritis #Glaucoma #Positive TB test in the past #NSTEMI type II #Acute kidney injury on CKD, baseline 1.2 #Hyperkalemia Attestations Medical Necessity Statement*: Continue admission for postoperative care after right hip fracture and repair, replacement of electrolytes, disposition planning and arrangement. Diagnoses Closed subcapital fracture of neck of right femur S72.011A Encounter type: initial encounter Dysphagia R13.10 BRENDA (acute kidney injury) N17.9 Elevated troponin R77.8 Multiple lung nodules R91.8 Skin tear of left upper arm without complication S41.112A Hypothyroidism E03.9 Diabetes E11.9 Essential hypertension I10 COPD (chronic obstructive pulmonary disease) J44.9 COPD type: unspecified COPD Lung nodule R91.1 Positive QuantiFERON-TB Gold test R76.12 Arthralgia M25.50 Joint pain location: unspecified Goals of care, counseling/discussion Z71.89
[2022-10-10] MEDS: magnesium sulfate premix 2 GM/50 ML PIGGYBACK IV (21:52)
[2022-10-10] MEDS: insulin lispro 100 unit/1 mL SUBCUT (23:31)
[2022-10-11] VITALS (9 sets, daily range): BP systolic 128–183; BP diastolic 54–84; PULSE 70–88; RESP 12–20; TEMP 36.6–37.1; O2SAT 95–100
[2022-10-11] MEDS: heparin 5,000 unit/mL INJ 1 mL 5000 UNIT SUBCUT ×2 (03:25→17:27)
[2022-10-11 05:07] LABS: Basophils % 0.2 %; Hematocrit 34.6 % (37.0-47.0); Hemoglobin 10.8 g/dL (11.5-15.3); Lymphocytes # 0.4 10^3/uL (0.8-4.8); Lymphocytes % 4.3 %; Mean Corpuscular HGB Conc 31.2 g/dL (30.0-36.0); Mean Corpuscular Hemoglobin 31.8 pg (28.0-34.0); Mean Corpuscular Volume 101.8 fl (81-99); Monocytes # 0.9 10^3/uL (0.2-0.9); Neutrophils # 8.35 10^3/uL (1.8-7.7); Nucleated Red Blood Cells % 0 %; Platelet Count 166 10^3/cmm (130-400); Red Cell Distribution Width 13.7 % (12.1-15.1); White Blood Count 9.7 10^3/uL (4.0-10.0)
[2022-10-11 05:26] LABS: Magnesium 1.8 mg/dL (1.7-2.3)
[2022-10-11 05:28] LABS: Alanine Aminotransferase 29 U/L (0-33); Albumin Level 2.3 g/dL (3.5-5.2); Alkaline Phosphatase 52 U/L (35-105); Anion Gap 14.4 (5-19); Aspartate Amino Transferase 44 U/L (0-32); Blood Urea Nitrogen 10 mg/dL (8-23); Calcium 7.8 mg/dL (8.5-10.5); Carbon Dioxide 22 mmol/L (22-29); Chloride 111 mmol/L (98-107); Globulin 2.3 g/dL (1.3-4.6); Glucose 77 mg/dL (65-115); Osmolality Calculated 294 mOsm/kg (285-295); Potassium 4.4 mmol/L (3.5-5.1); Sodium 143 mmol/L (136-145); Total Bilirubin 0.2 mg/dL (0.15-1.2); Total Protein 4.6 g/dL (6.6-8.7)
[2022-10-11] MEDS: ceFAZolin 1,000 MG in sodium chloride 0.9% (plus) 50 ML 100 MG IV ×2 (06:03)
[2022-10-11 06:22] LABS: Glucose Point of Care 98 mg/dL (70-110)
[2022-10-11] MEDS: acetaminophen 1,000 MG/100 ML PIGGYBACK 400 MG IV (06:34)
[2022-10-11] MEDS: cefTRIAXone 1,000 MG in sodium chloride 0.9% (plus) 50 ML 100 MG IV (09:08)
[2022-10-11] MEDS: levothyroxine 100 mcg Tablet PO (09:09)
[2022-10-11] MEDS: docusate sodium 100 mg Capsule PO (09:09)
[2022-10-11] MEDS: dilTIAZem ER (24HR) 120 mg Capsule PO (09:09)
[2022-10-11] MEDS: iron polysaccharide complex 150 mg Capsule PO ×2 (09:09→17:27)
[2022-10-11] MEDS: predniSONE 5 mg Tablet PO (09:09)
[2022-10-11] MEDS: cholecalciferol (vitamin D3) 1,000 unit Tablet 1000 UNIT PO (09:09)
[2022-10-11] MEDS: sennosides-docusate Tablet 2 TAB PO ×2 (09:09→17:27)
[2022-10-11] MEDS: calcium carbonate 500 mg Chew Tablet 1000 MG PO ×2 (09:09→17:27)
[2022-10-11] MEDS: multivitamin therapeutic Tablet 1 TAB PO (09:09)
[2022-10-11] MEDS: duloxetine 30 mg Capsule PO (09:09)
[2022-10-11] MEDS: hydroxychloroquine 200 mg Tablet PO ×2 (09:09→17:27)
[2022-10-11] MEDS: mupirocin oint 22 gm 1 APPLIC NASAL ×2 (09:15→17:28)
[2022-10-11] MEDS: chlorhexidine gluconate 0.12% Btl 473 mL 30 ML MUCOUS MEM ×4 (09:18→22:16)
[2022-10-11 10:32] LABS: Glucose Point of Care 173 mg/dL (70-110)
[2022-10-11] MEDS: insulin lispro 100 unit/1 mL SUBCUT ×2 (13:43→22:15)
[2022-10-11] MEDS: acetaminophen 500 mg Tablet 1000 MG PO ×2 (13:46→22:15)
[2022-10-11 17:31] LABS: Glucose Point of Care 60 mg/dL (70-110)
--- NOTE | 2022-10-11 18:07 | P.PN_ITS ---
Subjective Subjective: She states she is doing okay. No pain. No pain in her hip. No trouble breathing or chest pain. Vitals/I&O/Wt Last Vital Signs Temp 98.5 F 10/11/22 15:54 Pulse 78 10/11/22 15:54 Resp 12 10/11/22 15:54 BP 132/54 10/11/22 15:54 Pulse Ox 96 10/11/22 15:54 O2 Del Method Room Air 10/11/22 15:54 10/11/22 10/11/22 10/11/22 06:59 14:59 22:59 Intake Total 1550 / 3145 286 / 286 Output Total 300 / 300 Balance 1550 / 2220 Physical Exam Const: COMMON NORMALS: patient oriented x3 and alert GENERAL APPEARANCE: cooperative and frail appearing ORIENTATION/CONSCIOUSNESS: Yes awake HENMT: COMMON NORMALS: oropharynx normal Neck/C-Spine: COMMON NORMALS: no JVD Resp: COMMON NORMALS: normal respiratory effort and clear to auscultation bilaterally AUSCULTATION: clear to auscultation bilaterally Cardio: COMMON NORMALS: no JVD, regular rhythm, S1 normal heart sound present, S2 normal heart sound present and No murmurs present (Cardio) RHYTHM: regular rhythm HEART SOUNDS: S1 normal heart sound present and S2 normal heart sound present GI: COMMON NORMALS: Normal to inspection, nondistended, normoactive bowel sounds present, Soft to palpation and non-tender PALPATION: Yes Soft to palpation Extremity: COMMON NORMALS: no joint enlargement and no pedal edema OTHER: RLE warm, perfused. Clean postoperative dressing right hip. No bleeding, no bruising. Neuro: COMMON NORMALS: patient oriented x3 and moves all extremities SEN SORIUM/ORIENTATION: Yes alert Skin: COMMON NORMALS: no rashes or lesions noted GENERAL SKIN EXAM: no rashes or lesions noted Urinary Catheter Management: Calles: Cath Placed During This Visit: yes Reason for Continuing Indwelling Catheter: Other Urinary Catheter Date of Insertion: 10/08/22 Urinary Catheter Time of Insertion: 23:37 Data 10/11/22 04:18 10/11/22 04:18 Micro: Microbiology 10/09/22 14:36 Urine Culture - Preliminary Urine,Clean Catch A&P Assessment and plan (1) Closed subcapital fracture of neck of right femur: DC Calles. Continue mobilization with PT. Heparin VTE prophylaxis. Follow-up hemoglobin requested. Follow-up CBC. PT, OT Motion able to remove Calles hopefully. Disposition planning would benefit from amotivation, arrangements for SNF underway. Qualifiers: Encounter type: initial encounter Qualified Code(s): S72.011A - Unspecified intracapsular fracture of right femur, initial encounter for closed fracture (2) Dysphagia: ST evaluation. Full liquid diet for now. (3) BRENDA (acute kidney injury): Resolved. Magnesium again low 1.8, replace, recheck. Continue hold diclofenac and discontinue at discharge. Continue to hold naproxen and discontinue at discharge. (4) Elevated troponin: Appreciate cardiology assessment. Suspected demand ischemia. She does remain chest pain-free. Echocardiogram result noted, normal EF, grade 1 diastolic function, mild TVR, mild pulmonary hypertension, trace PVR. 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 Plan Possible UTI: On presentation. Urine culture so far without growth. Follow-up culture result. Change Rocephin to cefdinir. Hyperkalemia: Resolving, potassium noted 4.4. Follow-up chemistry request. Hypomagnesemia: Replace magnesium, follow-up levels. #Right hip fracture #Fall associated with lightheadedness #Hypertension #Hyperlipidemia #COPD #Diabetes mellitus #Peripheral neuropathy #Hypothyroidism ? TSH 1.50. Continue levothyroxine at current dose #Seropositive rheumatoid arthritis #Glaucoma #Positive TB test in the past #NSTEMI type II #Acute kidney injury on CKD, baseline 1.2 #Hyperkalemia Attestations Medical Necessity Statement*: Continue admission for assessment management following right hip fracture and repair, disposition planning and arrangements. Diagnoses Closed subcapital fracture of neck of right femur S72.011A Encounter type: initial encounter Dysphagia R13.10 BRENDA (acute kidney injury) N17.9 Elevated troponin R77.8 Multiple lung nodules R91.8 Skin tear of left upper arm without complication S41.112A Hypothyroidism E03.9 Diabetes E11.9 Essential hypertension I10 COPD (chronic obstructive pulmonary disease) J44.9 COPD type: unspecified COPD Lung nodule R91.1 Positive QuantiFERON-TB Gold test R76.12 Arthralgia M25.50 Joint pain location: unspecified Goals of care, counseling/discussion Z71.89
--- NOTE | 2022-10-11 20:12 | P.PN_ITS ---
Subjective Subjective: Patient is seen in her room. She lived independently prior to this fracture, and would like to return to that level of activity and living situation. She has been advised that she may benefit from inpatient rehabilitation. Vitals/I&O/Wt Last Vital Signs Temp 98.1 F 10/11/22 20:07 Pulse 70 10/11/22 20:07 Resp 20 H 10/11/22 20:07 BP 175/72 10/11/22 20:07 Pulse Ox 96 10/11/22 20:07 O2 Del Method Room Air 10/11/22 20:07 10/11/22 10/11/22 10/11/22 06:59 14:59 22:59 Intake Total 1550 / 3145 286 / 286 36 / 322 Output Total 300 / 300 Balance 1550 / 2220 - / Physical Exam Const: COMMON NORMALS: no acute distress, average body habitus, patient oriented x3 and alert GENERAL APPEARANCE: cooperative and comfortable ORIENTATION/CONSCIOUSNESS: Yes awake HENMT: COMMON NORMALS: normocephalic and atraumatic HEAD & SCALP: normocephalic and atraumatic Eye: GENERAL EYE: appearance normal, both eyes and all related structures Chest: COMMONS NORMALS: normal inspection of the chest Resp: COMMON NORMALS: normal respiratory effort EFFORT & INSPECTION: Yes able to speak in complete sentences and Yes symmetric chest movement Extremity: RIGHT LOWER EXTREMITY: Yes hip joint (Dressing is dry and intact.) Right hip: Yes inspection (No significant swelling or ecchymosis.), Yes palpation (Minimal to no tenderness.), Yes ROM (Not evaluated.) and Yes neurov ascular exam (Intact with no evidence of DVT.) Neuro: COMMON NORMALS: patient oriented x3 SENSORIUM/ORIENTATION: Yes alert Psych: COMMON NORMALS: mental status grossly normal APPEARANCE: Yes grossly normal ATTITUDE: Yes calm and Yes engaged ATTENTION/CONCENTRATION: Yes attention grossly intact Skin: COMMON NORMALS: no rashes or lesions noted GENERAL SKIN EXAM: no rashes or lesions noted Urinary Catheter Management: Calles: Cath Placed During This Visit: yes, but has since been removed by the nurse Reason for Continuing Indwelling Catheter: Other Urinary Catheter Date of Insertion: 10/08/22 Urinary Catheter Time of Insertion: 23:37 Date Urinary Catheter Removed: 10/11/22 Time Urinary Catheter Discontinued: 07:00 Data 10/11/22 04:18 10/11/22 04:18 Micro: Microbiology 10/09/22 14:36 Urine Culture - Preliminary Urine,Clean Catch A&P Assessment and plan (1) Closed subcapital fracture of neck of right femur: Patient presented after tripping on a rug and falling with onset of right hip p ain and inability to ambulate. Imaging studies on presentation to the emergency room demonstrated a right subcapital hip fracture with significant displacement. Plans were made for right hip hemiarthroplasty with a bipolar prosthesis. Patient continues inpatient status for postoperative rehabilitation and medical management. She did have a urinary tract infection upon admission. This has been treated. Patient is to be weightbearing as tolerated with posterior hip precautions. Qualifiers: Encounter type: initial encounter Qualified Code(s): S72.011A - Unspecified intracapsular fracture of right femur, initial encounter for closed fracture Attestations Medical Necessity Statement*: Ongoing therapies and medical management following right subcapital hip fracture and subsequent bipolar hip arthroplasty. Coding Level of Care Code Acute Code for [facility] Diagnoses Closed subcapital fracture of neck of right femur S72.011A Encounter type: initial encounter
[2022-10-11] MEDS: budesonide 0.5 mg/2 mL Neb INHALATION (20:37)
[2022-10-11 21:50] LABS: Glucose Point of Care 160 mg/dL (70-110)
[2022-10-11] MEDS: latanoprost 0.005% Op Soln 2.5 mL Btl 1 DROP EYE-BOTH (22:15)
[2022-10-12] VITALS (13 sets, daily range): BP systolic 146–178; BP diastolic 63–77; PULSE 68–81; RESP 15–20; TEMP 36.7–36.9; O2SAT 95–99
[2022-10-12] MEDS: heparin 5,000 unit/mL INJ 1 mL 5000 UNIT SUBCUT ×2 (02:18→15:52)
[2022-10-12 03:25] LABS: Basophils % 0.2 %; Hematocrit 33.1 % (37.0-47.0); Hemoglobin 10.5 g/dL (11.5-15.3); Lymphocytes # 0.7 10^3/uL (0.8-4.8); Lymphocytes % 7.4 %; Mean Corpuscular HGB Conc 31.7 g/dL (30.0-36.0); Mean Corpuscular Hemoglobin 31.7 pg (28.0-34.0); Mean Platelet Volume 10.7 fL (7.4-10.4); Monocytes # 0.9 10^3/uL (0.2-0.9); Monocytes % 9.4 %; Neutrophils # 7.56 10^3/uL (1.8-7.7); Neutrophils % 82.3 %; Nucleated Red Blood Cells % 0 %; Platelet Count 168 10^3/cmm (130-400); Red Blood Count 3.31 10^6/uL (4.1-5.3); Red Cell Distribution Width 13.8 % (12.1-15.1); White Blood Count 9.2 10^3/uL (4.0-10.0)
[2022-10-12 03:59] LABS: Alanine Aminotransferase 20 U/L (0-33); Albumin Level 2.4 g/dL (3.5-5.2); Alkaline Phosphatase 52 U/L (35-105); Blood Urea Nitrogen 10 mg/dL (8-23); Calcium 8.3 mg/dL (8.5-10.5); Carbon Dioxide 22 mmol/L (22-29); Chloride 107 mmol/L (98-107); Globulin 2.5 g/dL (1.3-4.6); Glucose 58 mg/dL (65-115); Magnesium 1.9 mg/dL (1.7-2.3); Osmolality Calculated 287 mOsm/kg (285-295); Sodium 140 mmol/L (136-145); Total Bilirubin 0.3 mg/dL (0.15-1.2); Total Protein 4.9 g/dL (6.6-8.7)
[2022-10-12 04:23] LABS: Anion Gap 15.5 (5-19); Aspartate Amino Transferase 47 U/L (0-32); Potassium 4.5 mmol/L (3.5-5.1)
[2022-10-12] MEDS: acetaminophen 500 mg Tablet 1000 MG PO ×3 (05:35→21:56)
[2022-10-12 06:27] LABS: Glucose Point of Care 80 mg/dL (70-110)
[2022-10-12] MEDS: budesonide 0.5 mg/2 mL Neb INHALATION ×2 (08:18→20:24)
[2022-10-12] MEDS: hydroxychloroquine 200 mg Tablet PO ×2 (09:29→17:44)
[2022-10-12] MEDS: dilTIAZem ER (24HR) 120 mg Capsule PO (09:29)
[2022-10-12] MEDS: duloxetine 30 mg Capsule PO (09:29)
[2022-10-12] MEDS: predniSONE 5 mg Tablet PO (09:30)
[2022-10-12] MEDS: levothyroxine 100 mcg Tablet PO (09:30)
[2022-10-12] MEDS: sennosides-docusate Tablet 2 TAB PO ×2 (09:30→17:45)
[2022-10-12] MEDS: calcium carbonate 500 mg Chew Tablet 1000 MG PO ×2 (09:30→17:45)
[2022-10-12] MEDS: cholecalciferol (vitamin D3) 1,000 unit Tablet 1000 UNIT PO (09:30)
[2022-10-12] MEDS: docusate sodium 100 mg Capsule PO (09:30)
[2022-10-12] MEDS: multivitamin therapeutic Tablet 1 TAB PO (09:30)
[2022-10-12] MEDS: chlorhexidine gluconate 0.12% Btl 473 mL 30 ML MUCOUS MEM ×4 (09:31→21:53)
[2022-10-12] MEDS: mupirocin oint 22 gm 1 APPLIC NASAL ×2 (09:31→17:46)
[2022-10-12] MEDS: iron polysaccharide complex 150 mg Capsule PO ×2 (09:33→17:44)
[2022-10-12 11:24] LABS: Glucose Point of Care 97 mg/dL (70-110)
--- NOTE | 2022-10-12 11:32 | PC.SOCIAL ---
IMM update IMM updated with patient. Verbalized an understanding. Copy PG 2 provided. Initialled, dated, timed, and placed in chart.
[2022-10-12 16:49] LABS: Glucose Point of Care 134 mg/dL (70-110)
--- NOTE | 2022-10-12 18:32 | P.PN_ITS ---
Subjective Subjective: Patient is seen in her room. She lived independently prior to this fracture, and would like to return to that level of activity and living situation. She has been advised that she may benefit from inpatient rehabilitation. She has agreed to [facility], but we are waiting on insurance approval. Medications: Reviewed: Yes Vitals/I&O/Wt Last Vital Signs Temp 98.1 F 10/12/22 16:00 Pulse 73 10/12/22 16:00 Resp 15 10/12/22 16:00 BP 146/70 10/12/22 16:00 Pulse Ox 98 10/12/22 16:00 O2 Del Method Room Air 10/12/22 16:00 10/12/22 10/12/22 10/12/22 06:59 14:59 22:59 Intake Total 480 / 480 240 / 720 Output Total 400 / 400 Balance 80 / 80 240 / 320 Physical Exam Const: COMMON NORMALS: no acute distress, average body habitus, patient oriented x3 and alert GENERAL APPEARANCE: cooperative and comfortable ORIENTATION/CONSCIOUSNESS: Yes awake HENMT: COMMON NORMALS: normocephalic and atraumatic HEAD & SCALP: normocephalic and atraumatic Eye: GENERAL EYE: appearance normal, both eyes and all related structures Chest: COMMONS NORMALS: normal inspection of the chest Resp: COMMON NORMALS: normal respiratory effort EFFORT & INSPECTION: Yes able to speak in complete sentences and Yes symmetric chest movement Extremity: RIGHT LOWER EXTREMITY: Yes hip joint (Minimal to no swelling or ecchymosis.) Right hip: Yes palpation (No tenderness.) and Yes neurovascular exam (No evidence of DVT.) Neuro: COMMON NORMALS: patient oriented x3 SENSORIUM/ORIENTATION: Yes alert Psych: COMMON NORMALS: mental status grossly normal APPEARANCE: Yes grossly normal ATTITUDE: Yes calm and Yes engaged ATTENTION/CONCENTRATION: Yes attention grossly intact Skin: COMMON NORMALS: no rashes or lesions noted GENERAL SKIN EXAM: no r ashes or lesions noted Urinary Catheter Management: Calles: Cath Placed During This Visit: yes, but has since been removed by the nurse Reason for Continuing Indwelling Catheter: Other Urinary Catheter Date of Insertion: 10/08/22 Urinary Catheter Time of Insertion: 23:37 Date Urinary Catheter Removed: 10/11/22 Time Urinary Catheter Discontinued: 07:00 Data 10/12/22 02:22 10/12/22 02:22 Micro: Microbiology 10/09/22 14:36 Urine Culture - Final Urine,Clean Catch A&P Assessment and plan (1) Closed subcapital fracture of neck of right femur: Patient presented after tripping on a rug and falling with onset of right hip pain and inability to ambulate. Imaging studies on presentation to the emergency room demonstrated a right subcapital hip fracture with significant displacement. Patient underwent uneventful right hip hemiarthroplasty utilizing a bipolar prosthesis. She will be weight bearing as tolerated with posterior hip precautions. Plans are that she would eventually be able to return to home. She is working with physical therapy and is currently awaiting placement in a skilled facility. Qualifiers: Encounter type: initial encounter Qualified Code(s): S72.011A - Unspecified intracapsular fracture of right femur, initial encounter for closed fracture Attestations Medical Necessity Statement*: Ongoing medical care and rehab following hip fracture with bipolar prosthesis Coding Level of Care Code Acute Code for [facility] Diagnoses Closed subcapital fracture of neck of right femur S72.011A Encounter type: initial encounter
[2022-10-12 20:03] LABS: Glucose Point of Care 131 mg/dL (70-110)
--- NOTE | 2022-10-12 20:29 | PM.PN ---
Subjective Subjective: Reports he is doing well, denies any pain or discomfort. Denies chest pain or trouble breathing. Vitals/I&O/Wt Last Vital Signs Temp 98.1 F 10/12/22 16:00 Pulse 74 10/12/22 20:25 Resp 18 10/12/22 20:25 BP 146/70 10/12/22 16:00 Pulse Ox 97 10/12/22 20:25 O2 Del Method Room Air 10/12/22 20:25 10/12/22 10/12/22 10/12/22 06:59 14:59 22:59 Intake Total 480 / 480 240 / 720 Output Total 400 / 400 Balance 80 / 80 240 / 320 Physical Exam Const: COMMON NORMALS: patient oriented x3 and alert GENERAL APPEARANCE: cooperative and frail appearing ORIENTATION/CONSCIOUSNESS: Yes awake HENMT: COMMON NORMALS: oropharynx normal Neck/C-Spine: COMMON NORMALS: no JVD Resp: COMMON NORMALS: normal respiratory effort and clear to auscultation bilaterally AUSCULTATION: clear to auscultation bilaterally Cardio: COMMON NORMALS: no JVD, regular rhythm, S1 normal heart sound present, S2 normal heart sound present and No murmurs present (Cardio) RHYTHM: regular rhythm HEART SOUNDS: S1 normal heart sound present and S2 normal heart sound present GI: COMMON NORMALS: Normal to inspection, nondistended, normoactive bowel sounds present, Soft to palpation and non-tender PALPATION: Yes Soft to palpation Extremity: COMMON NORMALS: no joint enlargement and no pedal edema OTHER: RLE warm, perfused. Clean postoperative dressing right hip. No bleeding, no bruising. Neuro: COMMON NORMALS: patient oriented x3 and moves all extremities SENSORIUM/ORIENTATION: Yes alert Skin: COMMON NORMALS: no rashes or lesions noted GENERAL SKIN EXAM: no rashes or lesions noted Urinary Catheter Management: Calles: Cath Placed During This Visit: yes, but has since been removed by the nurse Reason for Continuing Indwelling Catheter: Other Urinary Catheter Date of Insertion: 10/08/22 Urinary Catheter Time of Insertion: 23:37 Date Urinary Catheter Removed: 10/11/22 Time Urinary Catheter Discontinued: 07:00 Data 10/12/22 02:22 10/12/22 02:22 Micro: Microbiology 10/09/22 14:36 Urine Culture - Final Urine,Clean Catch A&P Assessment and plan (1) Closed subcapital fracture of neck of right femur: Hemoglobin noted 10.5. Calles discontinued. Continue to mobilize. Continue arrangements for skilled rehabilitation. Qualifiers: Encounter type: initial encounter Qualified Code(s): S72.011A - Unspecified intracapsular fracture of right femur, initial encounter for closed fracture (2) Dysphagia: Appreciate ST evaluation, dysphagia level 5 diet, minced and moist. (3) BRENDA (acute kidney injury): Resolved. Continue hold diclofenac and discontinue at discharge. Continue to hold naproxen and discontinue at discharge. (4) Elevated troponin: Appreciate cardiology assessment. Suspected demand ischemia. She does remain chest pain-free. Echocardiogram result noted, normal EF, grade 1 diastolic function, mild TVR, mild pulmonary hypertension, trace PVR. 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 Plan Possible UTI: Urine culture noted no growth, stop cefdinir. Hyperkalemia: Resolved. Follow-up chemistry request. Hypomagnesemia: Magnesium noted 1.9. #Right hip fracture #Fall associated with lightheadedness #Hypertension #Hyperlipidemia #COPD #Diabetes mellitus #Peripheral neuropathy #Hypothyroidism ? TSH 1.50. Continue levothyroxine at current dose #Seropositive rheumatoid arthritis #Glaucoma #Positive TB test in the past #NSTEMI type II #Acute kidney injury on CKD, baseline 1.2 #Hyperkalemia Attestations Medical Necessity Statement*: Continue admission for post operative care following right hip fracture and care. Diagnoses Closed subcapital fracture of neck of right femur S72.011A Encounter type: initial encounter Dysphagia R13.10 BRENDA (acute kidney injury) N17.9 Elevated troponin R77.8 Multiple lung nodules R91.8 Skin tear of left upper arm without complication S41.112A Hypothyroidism E03.9 Diabetes E11.9 Essential hypertension I10 COPD (chronic obstructive pulmonary disease) J44.9 COPD type: unspecified COPD Lung nodule R91.1 Positive QuantiFERON-TB Gold test R76.12 Arthralgia M25.50 Joint pain location: unspecified Goals of care, counseling/discussion Z71.89
[2022-10-13] VITALS (12 sets, daily range): BP systolic 150–173; BP diastolic 65–78; PULSE 74–90; RESP 16–20; TEMP 36.7–36.9; O2SAT 96–99
[2022-10-13 03:35] LABS: Basophils % 0.3 %; Hematocrit 33.3 % (37.0-47.0); Hemoglobin 10.7 g/dL (11.5-15.3); Lymphocytes # 1.1 10^3/uL (0.8-4.8); Lymphocytes % 15.3 %; Mean Corpuscular HGB Conc 32.1 g/dL (30.0-36.0); Mean Corpuscular Hemoglobin 32.3 pg (28.0-34.0); Mean Corpuscular Volume 100.6 fl (81-99); Monocytes # 0.7 10^3/uL (0.2-0.9); Monocytes % 9.5 %; Neutrophils # 5.42 10^3/uL (1.8-7.7); Neutrophils % 74.5 %; Nucleated Red Blood Cells % 0 %; Platelet Count 153 10^3/cmm (130-400); Red Blood Count 3.31 10^6/uL (4.1-5.3); Red Cell Distribution Width 13.7 % (12.1-15.1); White Blood Count 7.3 10^3/uL (4.0-10.0)
[2022-10-13] MEDS: heparin 5,000 unit/mL INJ 1 mL 5000 UNIT SUBCUT ×2 (03:41→15:34)
[2022-10-13 04:04] LABS: Alanine Aminotransferase 17 U/L (0-33); Albumin Level 2.6 g/dL (3.5-5.2); Alkaline Phosphatase 55 U/L (35-105); Anion Gap 13.8 (5-19); Aspartate Amino Transferase 42 U/L (0-32); Blood Urea Nitrogen 10 mg/dL (8-23); Calcium 8.4 mg/dL (8.5-10.5); Carbon Dioxide 22 mmol/L (22-29); Chloride 108 mmol/L (98-107); Globulin 2.6 g/dL (1.3-4.6); Glucose 76 mg/dL (65-115); Osmolality Calculated 288 mOsm/kg (285-295); Potassium 3.8 mmol/L (3.5-5.1); Sodium 140 mmol/L (136-145); Total Bilirubin 0.4 mg/dL (0.15-1.2); Total Protein 5.2 g/dL (6.6-8.7)
[2022-10-13 05:32] LABS: Glucose Point of Care 84 mg/dL (70-110)
[2022-10-13] MEDS: acetaminophen 500 mg Tablet 1000 MG PO ×3 (06:12→23:10)
[2022-10-13 07:18] LABS: Glucose Point of Care 81 mg/dL (70-110)
[2022-10-13] MEDS: budesonide 0.5 mg/2 mL Neb INHALATION ×2 (08:36→19:35)
[2022-10-13] MEDS: duloxetine 30 mg Capsule PO (09:05)
[2022-10-13] MEDS: multivitamin therapeutic Tablet 1 TAB PO (09:05)
[2022-10-13] MEDS: sennosides-docusate Tablet 2 TAB PO (09:05)
[2022-10-13] MEDS: iron polysaccharide complex 150 mg Capsule PO ×2 (09:05→17:07)
[2022-10-13] MEDS: mupirocin oint 22 gm 1 APPLIC NASAL ×2 (09:06→17:08)
[2022-10-13] MEDS: chlorhexidine gluconate 0.12% Btl 473 mL 30 ML MUCOUS MEM ×4 (09:06→21:01)
[2022-10-13] MEDS: dilTIAZem ER (24HR) 120 mg Capsule PO (09:06)
[2022-10-13] MEDS: hydroxychloroquine 200 mg Tablet PO ×2 (09:06→17:07)
[2022-10-13] MEDS: calcium carbonate 500 mg Chew Tablet 1000 MG PO ×2 (09:06→17:07)
[2022-10-13] MEDS: predniSONE 5 mg Tablet PO (09:06)
[2022-10-13] MEDS: docusate sodium 100 mg Capsule PO (09:06)
[2022-10-13] MEDS: cholecalciferol (vitamin D3) 1,000 unit Tablet 1000 UNIT PO (09:06)
[2022-10-13] MEDS: levothyroxine 100 mcg Tablet PO (09:10)
[2022-10-13 11:59] LABS: Glucose Point of Care 152 mg/dL (70-110)
[2022-10-13] MEDS: insulin lispro 100 unit/1 mL SUBCUT (13:14)
[2022-10-13 16:34] LABS: Glucose Point of Care 80 mg/dL (70-110)
--- NOTE | 2022-10-13 19:31 | P.PN_ITS ---
Subjective Subjective: Patient reports that she is doing well. She is having no complaints of pain. She is working with physical therapy. Medications: Reviewed: Yes Vitals/I&O/Wt Last Vital Signs Temp 98.4 F 10/13/22 16:00 Pulse 86 10/13/22 16:00 Resp 17 10/13/22 16:00 BP 166/71 10/13/22 16:00 Pulse Ox 96 10/13/22 16:00 O2 Del Method Room Air 10/13/22 16:00 10/13/22 10/13/22 10/13/22 06:59 14:59 22:59 Intake Total 360 / 360 240 / 600 Output Total 200 / 900 Balance -200 / 60 360 / 360 240 / 600 Physical Exam Const: COMMON NORMALS: no acute distress, average body habitus, patient oriented x3 and alert GENERAL APPEARANCE: cooperative and comfortable ORIENTATION/CONSCIOUSNESS: Yes awake HENMT: COMMON NORMALS: normocephalic and atraumatic HEAD & SCALP: normoceph alic and atraumatic Eye: GENERAL EYE: appearance normal, both eyes and all related structures Chest: COMMONS NORMALS: normal inspection of the chest Resp: COMMON NORMALS: normal respiratory effort EFFORT & INSPECTION: Yes able to speak in complete sentences and Yes symmetric chest movement Extremity: RIGHT LOWER EXTREMITY: Yes hip joint (Dressing dry and intact) Right hip: Yes inspection (No ecchymosis or significant swelling) and Yes neurovascular exam (No evidence of DVT) Neuro: COMMON NORMALS: patient oriented x3 SENSORIUM/ORIENTATION: Yes alert Psych: COMMON NORMALS: mental status grossly normal APPEARANCE: Yes grossly normal ATTITUDE: Yes calm and Yes engaged ATTENTION/CONCENTRATION: Yes attention grossly intact Skin: COMMON NORMALS: no rashes or lesions noted GENERAL SKIN EXAM: no rashes or lesions noted Urinary Catheter Management: Calles: Cath Placed During This Visit: yes, but has since been removed by the nurse Reason for Continuing Indwelling Catheter: Other Urinary Catheter Date of Insertion: 10/08/22 Urinary Catheter Time of Insertion: 23:37 Date Urinary Catheter Removed: 10/11/22 Time Urinary Catheter Discontinued: 07:00 Data 10/13/22 02:58 10/13/22 02:58 A&P Assessment and plan (1) Closed subcapital fracture of neck of right femur: Patient presented after tripping on a rug and falling with onset of right hip pain and inability to ambulate. Imaging studies on presentation to the emergenc y room demonstrated a right subcapital hip fracture with significant displacement. Patient underwent uneventful right hip hemiarthroplasty utilizing a bipolar prosthesis. She will be weight bearing as tolerated with posterior hip precautions. Plans are that she would eventually be able to return to home, but currently, we are planning discharge to [facility] to give her the best possibility of returning home. She is working with physical therapy and is currently awaiting placement in a skilled facility. Qualifiers: Encounter type: initial encounter Qualified Code(s): S72.011A - Unspecified intracapsular fracture of right femur, initial encounter for closed fracture Attestations Medical Necessity Statement*: Awaiting [facility]. Coding [facility] Closed subcapital fracture of neck of right femur S72.011A Encounter type: initial encounter
[2022-10-13] MEDS: ipratropium-albuterol 3 mL Neb INHALATION (19:35)
[2022-10-13 20:44] LABS: Glucose Point of Care 117 mg/dL (70-110)
[2022-10-13] MEDS: latanoprost 0.005% Op Soln 2.5 mL Btl 1 DROP EYE-BOTH (21:02)
--- NOTE | 2022-10-13 21:31 | PM.PN ---
Subjective Subjective: She is doing well today. Denies pain or discomfort. Denies trouble breathing. Vitals/I&O/Wt Last Vital Signs Temp 98.5 F 10/13/22 20:00 Pulse 82 10/13/22 20:00 Resp 17 10/13/22 20:00 BP 173/75 10/13/22 20:00 Pulse Ox 98 10/13/22 20:00 O2 Del Method Room Air 10/13/22 19:35 10/13/22 10/13/22 10/13/22 06:59 14:59 22:59 Intake Total 360 / 360 240 / 600 Output Total 200 / 900 Balance -200 / 60 360 / 360 240 / 600 Physical Exam Const: COMMON NORMALS: patient oriented x3 and alert GENERAL APPEARANCE: cooperative and frail appearing ORIENTATION/CONSCIOUSNESS: Yes awake HENMT: COMMON NORMALS: oropharynx normal Neck/C-Spine: COMMON NORMALS: no JVD Resp: COMMON NORMALS: normal respiratory effort and clear to auscultation bilaterally AUSCULTATION: clear to auscultation bilaterally Cardio: COMMON NORMALS: no JVD, regular rhythm, S1 normal heart sound present, S2 normal heart sound present and No murmurs present (Cardio) RHYTHM: regular rhythm HEART SOUNDS: S1 normal heart sound present and S2 normal heart sound present GI: COMMON NORMALS: Normal to inspection, nondistended, normoactive bowel sounds present, Soft to palpation and non-tender PALPATION: Yes Soft to palpation Extremity: COMMON NORMALS: no joint enlargement and no pedal edema OTHER: RLE warm, perfused. Clean postoperative dressing right hip. No bleeding, no bruising. Neuro: COMMON NORMALS: patient oriented x3 and moves all extremities SENSORIUM/ORIENTATION: Yes alert Skin: COMMON NORMALS: no rashes or lesions noted GENERAL SKIN EXAM: no rashes or lesions noted Urinary Catheter Management: Calles: Cath Placed During This Visit: yes, but has since been removed by the nurse Reason for Continuing Indwelling Catheter: Other Urinary Catheter Date of Insertion: 10/08/22 Urinary Catheter Time of Insertion: 23:37 Date Urinary Catheter Removed: 10/11/22 Time Urinary Catheter Discontinued: 07:00 Data 10/13/22 02:58 10/13/22 02:58 A&P Assessment and plan (1) Closed subcapital fracture of neck of right femur: Hemoglobin reviewed. Steady, will not request any further CBC. Calles discontinued. Continue to mobilize. Continue arrangements for skilled rehabilitation. Qualifiers: Encounter type: initial encounter Qualified Code(s): S72.011A - Unspecified intracapsular fracture of right femur, initial encounter for closed fracture (2) Dysphagia: Appreciate ST evaluation, dysphagia level 5 diet, minced and moist. (3) BRENDA (acute kidney injury): Resolved. Continue hold diclofenac and discontinue at discharge. Continue to hold naproxen and discontinue at discharge. (4) Elevated troponin: Appreciate cardiology assessment. Suspected demand ischemia. She does remain chest pain-free. Echocardiogram result noted, normal EF, grade 1 diastolic function, mild TVR, mild pulmonary hypertension, trace PVR. 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 Plan Possible UTI: Urine culture noted no growth, stop cefdinir. Hyperkalemia: Resolved. Follow-up chemistry request. Hypomagnesemia: Magnesium noted 1.9. #Right hip fracture #Fall associated with lightheadedness #Hypertension #Hyperlipidemia #COPD #Diabetes mellitus #Peripheral neuropathy #Hypothyroidism ? TSH 1.50. Continue levothyroxine at current dose #Seropositive rheumatoid arthritis #Glaucoma #Positive TB test in the past #NSTEMI type II #Acute kidney injury on CKD, baseline 1.2 #Hyperkalemia Attestations Medical Necessity Statement*: Continue postoperative care pending authorization for rehabilitation at [facility]. Diagnoses Closed subcapital fracture of neck of right femur S72.011A Encounter type: initial encounter Dysphagia R13.10 BRENDA (acute kidney injury) N17.9 Elevated troponin R77.8 Multiple lung nodules R91.8 Skin tear of left upper arm without complication S41.112A Hypothyroidism E03.9 Diabetes E11.9 Essential hypertension I10 COPD (chronic obstructive pulmonary disease) J44.9 COPD type: unspecified COPD Lung nodule R91.1 Positive QuantiFERON-TB Gold test R76.12 Arthralgia M25.50 Joint pain location: unspecified Goals of care, counseling/discussion Z71.89
[2022-10-14] MEDS: heparin 5,000 unit/mL INJ 1 mL 5000 UNIT SUBCUT (03:16)
[2022-10-14 04:00] VITALS: BP 168/76; PULSE 82; RESP 17; TEMP 36.6; O2SAT 98
[2022-10-14 06:00] VITALS: PULSE 84
[2022-10-14] MEDS: acetaminophen 500 mg Tablet 1000 MG PO (06:14)
[2022-10-14 06:36] LABS: Glucose Point of Care 78 mg/dL (70-110)
[2022-10-14 08:00] VITALS: BP 177/77; PULSE 86; PULSE 93; RESP 16; RESP 18; TEMP 36.7; O2SAT 98
[2022-10-14] MEDS: budesonide 0.5 mg/2 mL Neb INHALATION (08:35)
--- NOTE | 2022-10-14 08:57 | PC.SOCIAL ---
IMM update IMM updated with patient. Verbalized an understanding. Copy Pg 2 provided. Initialled, dated, timed, and placed in chart.
[2022-10-14] MEDS: levothyroxine 100 mcg Tablet PO (09:49)
[2022-10-14] MEDS: docusate sodium 100 mg Capsule PO (09:49)
[2022-10-14] MEDS: sennosides-docusate Tablet 2 TAB PO (09:49)
[2022-10-14] MEDS: duloxetine 30 mg Capsule PO (09:49)
[2022-10-14] MEDS: predniSONE 5 mg Tablet PO (09:49)
[2022-10-14] MEDS: iron polysaccharide complex 150 mg Capsule PO (09:49)
[2022-10-14] MEDS: dilTIAZem ER (24HR) 120 mg Capsule PO (09:49)
[2022-10-14] MEDS: calcium carbonate 500 mg Chew Tablet 1000 MG PO (09:49)
[2022-10-14] MEDS: multivitamin therapeutic Tablet 1 TAB PO (09:49)
[2022-10-14] MEDS: hydroxychloroquine 200 mg Tablet PO (09:49)
[2022-10-14] MEDS: cholecalciferol (vitamin D3) 1,000 unit Tablet 1000 UNIT PO (09:49)
[2022-10-14] MEDS: chlorhexidine gluconate 0.12% Btl 473 mL 30 ML MUCOUS MEM (09:50)
[2022-10-14] MEDS: mupirocin oint 22 gm 1 APPLIC NASAL (09:50)
[2022-10-14 10:43] LABS: SARS Covid-2 Antigen negative (Negative)
--- NOTE | 2022-10-14 11:49 | PC.NURSE ---
Report called to Chalo Palafox, given to Bertha CHRISTIAN.
[2022-10-14 12:07] VITALS: RESP 18
[2022-10-14] MEDS: oxyCODONE 5 mg IR Tab/Cap PO (12:07)
[2022-10-14 12:09] VITALS: BP 154/78; PULSE 78; RESP 18; TEMP 36.6; O2SAT 98
--- NOTE | 2022-10-14 12:58 | P.DES_ITS ---
Discharge Providers DDS Date of Admission: 10/09/22 01:35 Date Summary Completed: 10/14/22 Attending Provider at Admission: Jessica Abarca MD Attending Provider at Discharge: Apolinar Escalona Primary Care Provider: Babs Mendenhall MD DS Diagnoses Hospital Diagnoses (1) Closed subcapital fracture of neck of right femur: Qualifiers: Encounter type: initial encounter Qualified Code(s): S72.011A - Unspecified intracapsular fracture of right femur, initial encounter for closed fracture (2) Dysphagia: (3) BRENDA (acute kidney injury): (4) Elevated troponin: (5) Multiple lung nodules: (6) Skin tear of left upper arm without complication: (7) Hypothyroidism: (8) Diabetes: (9) Essential hypertension: (10) COPD (chronic obstructive pulmonary disease): Qualifiers: COPD type: unspecified COPD Qualified Code(s): J44.9 - Chronic obstructive pulmonary disease, unspecified (11) Lung nodule: (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: (13) Arthralgia: Qualifiers: Joint pain location: unspecified Qualified Code(s): M25.50 - Pain in unspecified joint (14) Goals of care, counseling/discussion: Reason for Visit Reason for Visit right hip pain Summary Additional Data Advance directives?: Yes (sister ian uncertain but says she makes decisions if sister is unable) Discharge Plan Discharge Patient Disposition: Xfer SNF Condition: Stable Prescriptions: New Xarelto 10 mg tablet 10 mg PO DAILY Qty: 14 0RF acetaminophen 500 mg tablet 500 mg PO Q6H PRN (Reason: pain) Qty: 30 0RF Continued gabapentin 300 mg capsule 300 mg PO TID docusate sodium [Colace] 100 mg capsule 100 mg PO DAILY latanoprost 0.005 % drops 1 drop ophthalmic (eye) BEDTIME trazodone 50 mg tablet 50 mg PO BEDTIME ropinirole 2 mg tablet 2 mg PO BEDTIME duloxetine 30 mg capsule,delayed release(DR/EC) 30 mg PO DAILY hydroxychloroquine 200 mg tablet 200 mg PO BID Qty: 60 2RF famotidine 40 mg tablet 40 mg PO BID spironolactone 25 mg tablet 25 mg PO DAILY pantoprazole 40 mg tablet,delayed release (DR/EC) 40 mg PO BID multivitamin Tablet 1 tab PO DAILY levothyroxine 100 mcg tablet 100 mcg PO QAM diltiazem HCl 120 mg capsule,extended release 24hr 120 mg PO DAILY metformin 500 mg tablet extended release 24 hr 500 mg PO BID Symbicort 80-4.5 mcg/actuation HFA aerosol inhaler 2 puff INHALATION BID PRN (Reason: unknown) prednisone 5 mg tablet 5 - 10 mg PO DAILY tramadol 50 mg tablet 50 mg PO TID PRN (Reason: Pain) Qty: 5 0RF Discontinued naproxen sodium [Aleve] 220 mg tablet 220 mg PO BID PRN (Reason: Pain) diclofenac sodium [Voltaren Arthritis Pain] 1 % Gel 2 g TOPICAL QID PRN (Reason: Pain) Rx Instructions: apply to single elbow, wrist or hand; for hand includes palm/fingers/back of hand Discharge Orders: Discharge Order (Routine); Ordered 10/14/22 Ordered By: Apolinar Escalona Referrals: Estella Saba MD [Physician] - 10/21/22 9:45 am Val Teixeira FNP [Nurse Practitioner] - 1 month (DR OFFICE WILL CALL WITH KATIANA OINTMENT) [facility], [Staff Physician] - Juliano Javier PA [Referring] - 4-7 days Discharge Diet: As Directed and Diabetic Discharge Activity: Increase activity as tolerated, Limit activity as instructed, Use walker/crutches as instructed and As per PT/OT instructions Patient Instructions: Hip Fracture (GEN) Activity Restrictions/Additional Instructions: Weightbearing as tolerated with posterior hip precautions. Leave dressing in place until it comes off on its own. Physical therapy for gait training, strengthening, and ambulation. Dysphagia level 5 diet minced and moist. Follow-up with your primary doctor regarding dysphagia. Follow-up with your primary doctor regarding lung nodules. Follow-up regarding history of positive QuantiFERON TB Gold test. Follow-up regarding other chronic conditions including COPD, hypertension, hyperlipidemia and diabetes. DS Attestations Time Spent in /Discharge Care*: greater than 30 min Quality - Stroke: Symptom Onset Unknown: No Quality - VTE: Deep Vein Thrombosis/Pulmonary Embolism Present on Admission: No Coding Level of Care Code 09868 Total time (in minutes) for Discharge: 40 Diagnoses Closed subcapital fracture of neck of right femur S72.011A Encounter type: initial encounter Dysphagia R13.10 BRENDA (acute kidney injury) N17.9 Elevated troponin R77.8 Multiple lung nodules R91.8 Skin tear of left upper arm without complication S41.112A Hypothyroidism E03.9 Diabetes E11.9 Essential hypertension I10 COPD (chronic obstructive pulmonary disease) J44.9 COPD type: unspecified COPD Lung nodule R91.1 Positive QuantiFERON-TB Gold test R76.12 Arthralgia M25.50 Joint pain location: unspecified Goals of care, counseling/discussion Z71.89
--- NOTE | 2022-10-14 13:16 | P.DS_ITS ---
Discharge Providers Date of Admission: 10/09/22 01:35 Date of Discharge: October 14, 2022 Attending Provider at Admission: Jessica Abarca MD Attending Provider at Discharge: Apolinar Escalona Primary Care Provider: Babs Mendenhall MD Diagnoses at Discharge Discharge Diagnosis (1) Closed subcapital fracture of neck of right femur: Status: Acute Qualifiers: Encounter type: initial encounter Qualified Code(s): S72.011A - Unspecified intracapsular fracture of right femur, initial encounter for closed fracture (2) Dysphagia: Status: Acute (3) BRENDA (acute kidney injury): Status: Acute (4) Elevated troponin: Status: Acute (5) Multiple lung nodules: Status: Acute (6) Skin tear of left upper arm without complication: Status: Acute (7) Hypothyroidism: Status: Acute (8) Diabetes: Status: Acute (9) Essential hypertension: Status: Acute (10) COPD (chronic obstructive pulmonary disease): Status: Acute Qualifiers: COPD type: unspecified COPD Qualified Code(s): J44.9 - Chronic obstr uctive pulmonary disease, unspecified (11) Lung nodule: Status: Acute (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 On presentation with finding of elevated troponin, was assessed by echocardiogram with finding of normal EF, grade 1 diastolic dysfunction, mild TVR, pulmonary hypertension, trace PVR. By cardiology assessment findings without associated with demand ischemia. She remains chest pain-free. Underwent unremarkable bipolar hemiarthroplasty of right hip. Has been recovering well. Mild decrease in hemoglobin, but stabilized around 10.5. We will continue on Xarelto for DVT prophylaxis. Has not required any significant pain medication. With reported history of dysphagia was assessed by speech therapy with recommendation for level 5 diet, minced and moist. Please follow-up. On presentation with acute kidney injury, which has resolved. She is asked to avoid NSAIDs, naproxen and diclofenac were discontinued. Transient hyperkalemia while in the hospital, received low potassium diet, resolved with resolution of BRENDA. Hypomagnesemia was replaced. Please follow-up regarding history of lung nodules, history of positive QuantiFERON gold test, and other chronic conditions, COPD, HTN, HLD, diabetes. Physical Exam Narrative: Friend at bedside. Const: COMMON NORMALS: patient oriented x3 and alert GENERAL APPEARANCE: cooperative and frail appearing ORIENTATION/CONSCIOUSNESS: Yes awake HENMT: COMMON NORMALS: oropharynx normal Neck/C-Spine: COMMON NORMALS: no JVD Resp: COMMON NORMALS: normal respiratory effort and clear to auscultation bilaterally AUSCULTATION: clear to auscultation bilaterally Cardio: COMMON NORMALS: no JVD, regular rhythm, S1 normal heart sound present, S2 normal heart sound present and No murmurs present (Cardio) RHYTHM: regular rhythm HEART SOUNDS: S1 normal heart sound present and S2 normal heart sound present GI: COMMON NORMALS: Normal to inspection, nondistended, normoactive bowel sounds present, Soft to palpation and non-tender PALPATION: Yes Soft to palpation Extremity: COMMON NORMALS: no joint enlargement and no pedal edema OTHER: RLE warm, perfused. Clean postoperative dressing right hip. No bleeding, no bruising. Neuro: COMMON NORMALS: patient oriented x3 and moves all extremities SENSORIUM/ORIENTATION: Yes alert Skin: COMMON NORMALS: no rashes or lesions noted GENERAL SKIN EXAM: no rashes or lesions noted Urinary Catheter Management: Calles: Cath Placed During This Visit: yes, but has since been removed by the nurse Reason for Continuing Indwelling Catheter: Other Urinary Catheter Date of Insertion: 10/08/22 Urinary Catheter Time of Insertion: 23:37 Date Urinary Catheter Removed: 10/11/22 Time Urinary Catheter Discontinued: 07:00 Discharge Data Studies Completed and Pending Completed Studies During Hospitalization Category Date Time Status CT chest abdpel w/*[id number] Stat Cat Scan 10/08/22 22:[address] facial bones wo con* [id number] Stat Cat Scan 10/08/22 22:[address] head wo con* [id number] Stat Cat Scan 10/08/22 22:53 Completed XR femur RT min 2V* [id number] Stat Exams 10/08/22 22:53 Completed XR hip RT 2-3V wo/w pel* [id number] Stat Exams 10/08/22 22:53 Completed XR pelvis 1-2V* [id number] Routine Exams 10/10/22 08:42 Completed XR tibia fibula RT 2V [id number] Stat Exams 10/08/22 22:53 Completed CV. echo complete* [id number] Routine Ultrasound 10/09/22 02:55 Completed Radiology Impressions Chest/Abdomen/Pelvis CT 10/08/22 22:53 IMPRESSION: 1. Negative for traumatic injury to the chest. 2. Ascending thoracic aorta is dilated 3.6 cm, similar to prior exam. 3. Coronary artery atherosclerotic calcifications. 4. Cardiomegaly. 5. Mediastinal lymph nodes measuring up to 7.7 mm. 6. Right lower lobe 13.7 mm pulmonary nodule. Left lower lobe 11.7 mm nodule, new compared to prior exam. Lingular nodule measuring 15 mm abutting the pleural surface. Highly suspicious nodule(s). Consider non-emergent IMPRESSION: 1. Right subcapital impacted fracture with at least 1/2 shaft displacement. 2. Biliary dilation. 3. Cholecystectomy. 4. Bilateral renal cysts. 5. Left kidney chronic atrophy. 6. Constipation. 7. Calles catheter in the urinary bladder with air presumed iatrogenic. 8. Diverticulosis without diverticulitis. 9. Left hip arthroplasty changes. COMMENTS: Consistent with the [employer]'s Incidental Findings Committee white paper (J Am Ivan Radiol 2018): Any incidental renal lesion less than 1 cm or classified as too small to characterize, or any incidental cystic renal lesion characterized as simple-appearing, is likely benign. No follow-up imaging is recommended for these lesions per consensus recommendations based on imaging criteria. Face CT 10/08/22 22:53 IMPRESSION: Negative for fracture or dislocation. Femur X-Ray 10/08/22 22:53 IMPRESSION: 1. Right subcapital impacted displaced hip fracture. 2. Scattered vascular calcifications Head CT 10/08/22 22:53 IMPRESSION: Negative for intracranial hemorrhage or mass effect. Hip/Pelvis X-Ray 10/08/22 22:53 IMPRESSION: Right subcapital impacted displaced hip fracture. Tibia/Fibula X-Ray 10/08/22 22:53 IMPRESSION: No acute findings. Pelvis X-Ray 10/10/22 08:42 IMPRESSION: Postsurgical changes of right hip arthroplasty Laboratory Results WBC 7.3 10^3/uL (4.0-10.0) 10/13/22 02:58 RBC 3.31 10^6/uL (4.1-5.3) L 10/13/22 02:58 Hgb 10.7 g/dL (11.5-15.3) L 10/13/22 02:58 Hct 33.3 % (37.0-47.0) L 10/13/22 02:58 MCV 100.6 fl (81-99) H 10/13/22 02:58 MCH 32.3 pg (28.0-34.0) 10/13/22 02:58 MCHC 32.1 g/dL (30.0-36.0) 10/13/22 02:58 RDW 13.7 % (12.1-15.1) 10/13/22 02:58 Plt Count 153 10^3/cmm (130-400) 10/13/22 02:58 MPV 10.0 fL (7.4-10.4) 10/13/22 02:58 Neut % (Auto) 74.5 % 10/13/22 02:58 Lymph % (Auto) 15.3 % 10/13/22 02:58 [place] % (Auto) 9.5 % 10/13/22 02:58 Eos % (Auto) 0.0 % 10/13/22 02:58 Baso % (Auto) 0.3 % 10/13/22 02:58 Neut # (Auto) 5.42 10^3/uL (1.8-7.7) 10/13/22 02:58 Lymph # (Auto) 1.1 10^3/uL (0.8-4.8) 10/13/22 02:58 [place] # (Auto) 0.7 10^3/uL (0.2-0.9) 10/13/22 02:58 Eos # (Auto) 0.0 10^3/uL (0.0-0.8) 10/13/22 02:58 Baso # (Auto) 0.0 10^3/uL (0.0-0.1) 10/13/22 02:58 Nucleated RBC % (auto) 0 % 10/13/22 02:58 Nucleated RBCs # 0.0 /100WBC 10/13/22 02:58 PT 13.30 SECONDS (12.1-14.9) 10/08/22 22:55 INR 0.98 (0.8-1.2) 10/08/22 22:55 APTT 27.8 SECONDS (23.9-36.7) 10/08/22 22:55 Sodium 140 mmol/L (136-145) 10/13/22 02:58 Potassium 3.8 mmol/L (3.5-5.1) 10/13/22 02:58 Chloride 108 mmol/L (98-107) H 10/13/22 02:58 Carbon Dioxide 22 mmol/L (22-29) 10/13/22 02:58 Anion Gap 13.8 (5-19) 10/13/22 02:58 BUN 10 mg/dL (8-23) 10/13/22 02:58 Creatinine 0.7 mg/dL (0.5-0.9) 10/13/22 02:58 GFR Calculation Not Reportable 10/13/22 02:58 Glucose 76 mg/dL (65-115) 10/13/22 02:58 POC Glucose 78 mg/dL (70-110) 10/14/22 06:16 Estimat Average Glucose 171 10/08/22 22:55 Hemoglobin A1c 7.6 % (4.0-6.0) H 10/08/22 22:55 Calculated Osmolality 288 mOsm/kg (285-295) 10/13/22 02:58 Calcium 8.4 mg/dL (8.5-10.5) L 10/13/22 02:58 Magnesium 1.9 mg/dL (1.7-2.3) 10/12/22 02:22 Total Bilirubin 0.4 mg/dL (0.15-1.2) 10/13/22 02:58 AST 42 U/L (0-32) H 10/13/22 02:58 ALT 17 U/L (0-33) 10/13/22 02:58 Alkaline Phosphatase 55 U/L (35-105) 10/13/22 02:58 Creatine Kinase 246 U/L (26-192) H 10/10/22 04:40 Troponin T Baseline 180 ng/L (0-10) H* 10/08/22 22:55 Troponin T 120 Minute 150.8 ng/L (0-10) H 10/09/22 00:50 Delta Troponin T -29.2 ABS# (0-10) L 10/09/22 00:50 Troponin T Hi Sens 6Hr 160.1 ng/L (0-10) H 10/09/22 05:36 Troponin T Hi Sens 6Hr Delta -19.9 ng/L (0-12) L 10/09/22 05:36 Total Protein 5.2 g/dL (6.6-8.7) L 10/13/22 02:58 Albumin 2.6 g/dL (3.5-5.2) L 10/13/22 02:58 Globulin 2.6 g/dL (1.3-4.6) 10/13/22 02:58 Procalcitonin 0.07 ng/mL (0-0.5) 10/09/22 00:50 TSH 1.08 uIU/mL (0.27-4.20) 10/09/22 00:50 TSH Cancelled 10/09/22 00:50 Urine Color Dark yellow (Yellow) 10/09/22 14:36 Urine Appearance Hazy (CLEAR) A 10/09/22 14:36 Urine pH 5 (5-7) 10/09/22 14:36 Ur Specific [place] 1.015 (1.005-1.030) 10/09/22 14:36 Urine Protein Neg (Negative) 10/09/22 14:36 Urine Glucose (UA) Norm (Normal) 10/09/22 14:36 Urine Ketones 1+ (Negative) H 10/09/22 14:36 Urine Blood 2+ (Negative) H 10/09/22 14:36 Urine Nitrate Negative (Negative) 10/09/22 14:36 Urine Bilirubin Neg (Negative) 10/09/22 14:36 Urine Urobilinogen Neg mg/dL (Negative) 10/09/22 14:36 Ur Leukocyte Esterase 2+ (Negative) H 10/09/22 14:36 Urine RBC 15-25 /hpf (0-2) H 10/09/22 14:36 Urine WBC 80-100 /hpf (0-5) H 10/09/22 14:36 Ur Squamous Epith Cells 0-4 /hpf (0-5) H 10/09/22 14:36 Amorphous Sediment Not Reportable 10/09/22 14:36 Urine Bacteria 1+ /hpf (NONE) H 10/09/22 14:36 Hyaline Casts 0-4 /lpf H 10/09/22 14:36 Urine Mucus 1+ /hpf 10/09/22 14:36 SARS-CoV-2 Ag (Rapid) negative (Negative) 10/14/22 09:53 Vitals Last Vital Signs Temp 97.8 F 10/14/22 12:09 Pulse 78 10/14/22 12:09 Resp 18 10/14/22 12:09 BP 154/78 10/14/22 12:09 Pulse Ox 98 10/14/22 12:09 O2 Del Method Room Air 10/14/22 08:00 Discharge Plan Discharge Patient Disposition: Xfer SNF Condition: Stable Prescriptions: New Xarelto 10 mg tablet 10 mg PO DAILY Qty: 14 0RF acetaminophen 500 mg tablet 500 mg PO Q6H PRN (Reason: pain) Qty: 30 0RF Continued gabapentin 300 mg capsule 300 mg PO TID docusate sodium [Colace] 100 mg capsule 100 mg PO DAILY latanoprost 0.005 % drops 1 drop ophthalmic (eye) BEDTIME trazodone 50 mg tablet 50 mg PO BEDTIME ropinirole 2 mg tablet 2 mg PO BEDTIME duloxetine 30 mg capsule,delayed release(DR/EC) 30 mg PO DAILY hydroxychloroquine 200 mg tablet 200 mg PO BID Qty: 60 2RF famotidine 40 mg tablet 40 mg PO BID spironolactone 25 mg tablet 25 mg PO DAILY pantoprazole 40 mg tablet,delayed release (DR/EC) 40 mg PO BID multivitamin Tablet 1 tab PO DAILY levothyroxine 100 mcg tablet 100 mcg PO QAM diltiazem HCl 120 mg capsule,extended release 24hr 120 mg PO DAILY metformin 500 mg tablet extended release 24 hr 500 mg PO BID Symbicort 80-4.5 mcg/actuation HFA aerosol inhaler 2 puff INHALATION BID PRN (Reason: unknown) prednisone 5 mg tablet 5 - 10 mg PO DAILY tramadol 50 mg tablet 50 mg PO TID PRN (Reason: Pain) Qty: 5 0RF Discontinued naproxen sodium [Aleve] 220 mg tablet 220 mg PO BID PRN (Reason: Pain) diclofenac sodium [Voltaren Arthritis Pain] 1 % Gel 2 g TOPICAL QID PRN (Reason: Pain) Rx Instructions: apply to single elbow, wrist or hand; for hand includes palm/fingers/back of hand Discharge Orders: Discharge Order (Routine); Ordered 10/14/22 Ordered By: Apolinar Escalona Referrals: Estella Saba MD [Physician] - 10/21/22 9:45 am Val Teixeira FNP [Nurse Practitioner] - 1 month (DR OFFICE WILL CALL WITH APPOINTMENT) [facility], [Staff Physician] - Juliano Javier PA [Referring] - 4-7 days Discharge Diet: As Directed and Diabetic Discharge Activity: Increase activity as tolerated, Limit activity as instructed, Use walker/crutches as instructed and As per PT/OT instructions Patient Instructions: Hip Fracture (GEN) Activity Restrictions/Additional Instructions: Weightbearing as tolerated with posterior hip precautions. Leave dressing in place until it comes off on its own. Physical therapy for gait training, strengthening, and ambulation. Dysphagia level 5 diet minced and moist. Follow-up with your primary doctor regarding dysphagia. Follow-up with your primary doctor regarding lung nodules. Follow-up regarding history of positive QuantiFERON TB Gold test. Follow-up regarding other chronic conditions including COPD, hypertension, hyperlipidemia and diabetes. Discharge Attestations Time Spent in Discharge Care*: greater than 30 min Quality Metrics Clinical Quality Measures [ No reported AMI, CVA or VTE this stay] Coding Level of Care Code Acute Code for Chg Fwd Diagnoses Closed subcapital fracture of neck of right femur S72.011A Encounter type: initial encounter Dysphagia R13.10 BRENDA (acute kidney injury) N17.9 Elevated troponin R77.8 Multiple lung nodules R91.8 Skin tear of left upper arm without complication S41.112A Hypothyroidism E03.9 Diabetes E11.9 Essential hypertension I10 COPD (chronic obstructive pulmonary disease) J44.9 COPD type: unspecified COPD Lung nodule R91.1 Positive QuantiFERON-TB Gold test R76.12 Arthralgia M25.50 Joint pain location: unspecified Goals of care, counseling/discussion Z71.89
[2022-10-16 07:05] LABS: Glucose Point of Care 149 mg/dL (70-110)
== END 2022-10-14 12:10 | disposition skilled nursing facility (03) | DRG 522 ==
LOC: ER 10-09 01:35 → MEDSURG 10-09 01:53
PROVIDERS: Specialist; Admitting Provider Internal Medicine; Emergency Provider Emergency Medicine; PCP Family Medicine; Visit Provider Internal Medicine
PROC: 0SRR0JZ Replacement of Right Hip Joint, Femoral Surface with Synthetic Substitute, Open Approach (ICD-10-PCS; CPT 27125; principal; 2022-10-10 07:00)
DX: S72.011A Unspecified intracapsular fracture of right femur, initial encounter for closed fracture (principal); I24.8 Other forms of acute ischemic heart disease; N17.9 Acute kidney failure, unspecified; W01.0XXA Fall on same level from slipping, tripping and stumbling without subsequent striking against object, initial encounter; E11.22 Type 2 diabetes mellitus with diabetic chronic kidney disease; I12.9 Hypertensive chronic kidney disease with stage 1 through stage 4 chronic kidney disease, or unspecified chronic kidney disease; N18.9 Chronic kidney disease, unspecified; E78.5 Hyperlipidemia, unspecified; J44.9 Chronic obstructive pulmonary disease, unspecified; E11.42 Type 2 diabetes mellitus with diabetic polyneuropathy; E03.9 Hypothyroidism, unspecified; I27.20 Pulmonary hypertension, unspecified; E87.5 Hyperkalemia; Z79.891 Long term (current) use of opiate analgesic; Z79.84 Long term (current) use of oral hypoglycemic drugs; R91.8 Other nonspecific abnormal finding of lung field; M05.9 Rheumatoid arthritis with rheumatoid factor, unspecified; Z88.2 Allergy status to sulfonamides; H40.9 Unspecified glaucoma
CPT/HCPCS: 36415; 36416; 51702; 70450; 70486; 71260; 72170; 73502; 73552; 73590; 74177; 80053; 81001; 81003; 82550; 82962; 83036; 83735; 84145; 84443; 84484; 85025; 85610; 85730; 87086; 87426; 90471; 90715; 92523; 92526; 92610; 93005; 93306; 94640; 94664; 96372; 97110; 97116; 97161; 97167; 97530; 99285; C1776; J0131; J0690; J0696; J1644; J1815; J2270; J2370; J2704; J3475; J3490; J7030; J7040; J7512; J7626; Q3014; Q9967

== ENCOUNTER → 2022-10-21 09:48 | Outpatient (BNVA) | payer MEDICARE, MEDICAID, SELFPAY | PROVIDERS: PCP Family Medicine; Visit Provider Specialist | DX: S72.011D Unspecified intracapsular fracture of right femur, subsequent encounter for closed fracture with routine healing; X58.XXXD Exposure to other specified factors, subsequent encounter | CPT/HCPCS: 73502; 99024 ==